=== PATIENT | female | born 1930 | race Caucasian/White ===

== ENCOUNTER 2017-02-24 22:49 | Inpatient (IN) | payer MEDICARE, OTHER ==
[~2017-02-24] VITALS: Ht 157.5 cm; Wt 63.0 kg
[~2017-02-24 22:49] MED LIST: ASPI81TA31 PO; Acetaminophen PO; CHOL10002 PO; DOCU-25 PO; FURO40TA5 PO; HYDR-894 PO; LEVO25TA9 PO; Lisinopril PO; RIVA15TA PO
--- NOTE | 2017-02-24 23:10 | NUR ---
CALLED MED RESPONSE SPOKE TO NISHANT. [facility] ETA 30MINS
--- NOTE | 2017-02-24 23:45 | NUR ---
[facility] HERE TO TRANSPORT PT TO [facility] FOR CT OF HEAD, DUE TO CT MACHINE DOWN... PT IS ALERT, ORIENTED X 4, NO RESP DISTRESS NOTED OR REPORTED UPON TRANSFER ASSESSMENT...
[2017-02-24 23:46] LABS: BASOPHILS # (AUTO) 0.1 K/uL (0.0-8.0); BASOPHILS % (AUTO) 0.7 % (0.0-2.0); EOSINOPHILS # (AUTO) 0.2 K/uL (0.0-0.7); EOSINOPHILS % (AUTO) 2.2 % (0.0-7.0); HEMATOCRIT 44.7 % (37-47); HEMOGLOBIN 14.6 G/DL (12.0-16.0); LYMPHOCYTES # (AUTO) 1.6 K/UL (0.8-4.8); LYMPHOCYTES % (AUTO) 19.9 % (20.5-51.5); MEAN CORPUSCULAR HEMOGLOBIN 26.7 UUG (27.0-31.0); MEAN CORPUSCULAR HGB CONC 33 g/dL (32.0-37.0); MEAN CORPUSCULAR VOLUME 81.8 FL (81.0-99.0); MONOCYTES % (AUTO) 12.6 % (0.0-11.0); NEUTROPHILS # (AUTO) 5.2 K/UL (1.8-8.9); NEUTROPHILS % (AUTO) 64.6 % (38.5-71.5); PLATELET COUNT (AUTO) 224 K/UL (150-450); RED BLOOD CELL COUNT(AUTO) 5.47 MIL/UL (4.2-5.4); WHITE BLOOD COUNT (AUTO) 8.1 K/UL (4.0-11.2)
[2017-02-24 23:47] LABS: CREATININE 0.8 mg/dL (0.6-1.3); POTASSIUM 4.1 mmol/L (3.5-5.1)
[2017-02-24] MEDS ORDERED: METF500T4 PO (23:57)
[2017-02-24] MEDS ORDERED: OLME20TA15 PO (23:57)
[2017-02-24] MEDS ORDERED: HYDR-4077 PO (23:57)
[2017-02-24 23:59] LABS: BILIRUBIN,DIRECT 0.2 mg/dL (0.0-0.2); BILIRUBIN,TOTAL 0.7 mg/dL (0.2-1.0); TOTAL PROTEIN, SERUM 8.6 g/dL (6.4-8.2)
--- NOTE | 2017-02-25 00:25 | NUR ---
PT RETURNED FROM CT SCAN AT [facility], PT IS ALERT, ORIENTED X 4, NO RESP DISTRESS NOTED OR REPORTED UPON ASSESSMENT... FAMILY AT SIDE...
[2017-02-25] MEDS ORDERED: FUROSEMIDE 20 MG/2 ML VIAL IV ONE ×2 (00:45→01:15)
--- NOTE | 2017-02-25 00:50 | NUR ---
Call placed to [employer], Kari Mackenzie will be paged.
--- NOTE | 2017-02-25 00:51 | NUR ---
ROSA speaking with Kari Mackenzie NP.
--- NOTE | 2017-02-25 01:04 | NUR ---
Pt. admitted to TELE , under care of Dr. DAVID, [place]ongs List completed, PT is alert, oriented x 4, no resp distress noted or reported upon assessment... pt transferred via gurney...
--- NOTE | 2017-02-25 01:10 | NUR ---
PATIENT ADMITTED TO FLOOR VIA GURNEY WITH FAMILY AT BEDSIDE. PATIENT IS A/O X4. FIJIAN SPEAKING BUT ABLE TO MAKE SIMPLE NEEDS KNOWN. DENIES CHEST PAIN OR ANY OTHER DISCOMFORT. PLACED ON TELE ORDERED A-FIB. BP ELEVATED. PATIENT IS CRYING TO FAMILY. FAMILY STATED THEY HAVE A FAMILY SITUATION THAT IS GOING ON AND THAT IS WHY SHE IS UPSET AND STRESSED OUT. WILL CONTINUE TO MONITOR VITALS. ALL OTHER VSS. NO RESP. DISTRESS NOTED. HEPLOCK INTACT AND PATENT. SKIN INTACT. ORIENTED TO ROOM AND CALL LIGHT. CALL LIGHT IN REACH. ALL NEEDS ATTENDED. WILL CONTINUE TO MONITOR.
[2017-02-25 01:15] VITALS: BP 164/69
[2017-02-25] MEDS ORDERED: ACETAMINOPHEN 325 MG TABLET PO PRN (01:15)
[2017-02-25] MEDS ORDERED: Z GUARD REMEDY PASTE 57 GM TUBE TOP PRN (01:15)
[2017-02-25] MEDS ORDERED: ZOLPIDEM 5 MG TABLET PO PRN (01:15)
[2017-02-25] MEDS ORDERED: INSULIN REGULAR, HUMAN 300 UNIT/3 ML VIAL SQ PRN (01:15)
[2017-02-25] MEDS ORDERED: MAGNESIUM HYDROXIDE 30 ML LIQUID UDC PO PRN (01:15)
[2017-02-25] MEDS ORDERED: DEXTROSE 50% 50 ML DISP.SYRIN IV PRN (01:15)
[2017-02-25] MEDS ORDERED: HYDROCODONE/APAP 5-325MG TABLET PO PRN (01:15)
[2017-02-25] MEDS ORDERED: ONDANSETRON 4 MG/2 ML VIAL IV PRN (01:15)
[2017-02-25] MEDS ORDERED: ENALAPRILAT DIHYDRATE INJ 2.5 MG in IV NORMAL SALINE 50 ML IV PRN (01:15)
--- NOTE | 2017-02-25 01:21 | NUR ---
PATIENT RESTING IN BED. INFORMED BY REGULATORY AFFAIRS CONSULTANT THAT PATIENT IS A-FIB WITH OCCASIONAL PVC'S. PATIENT HAD 6 BEATS OF NON-SUSTAINED V-TACH. VITALS STABLE AT THIS TIME. PATIENT DENIES CHEST PAIN. CALL LIGHT IN REACH. ALL NEEDS ATTENDED. WILL CONTINUE TO MONITOR.
[2017-02-25 04:00] VITALS: BP 127/62
--- NOTE | 2017-02-25 05:00 | NUR ---
PATIENT ASLEEP IN BED. EASILY AROUSABLE. DENIES CHEST TATE OR ANY PAIN OR DISCOMFORT. VSS. BP STABLE AND WNL. ON TELE A-FIB. CALL LIGHT IN REACH. ALL NEEDS ATTENDED. WILL CONTINUE TO MONITOR.
[2017-02-25] MEDS: BLOOD SUGAR DIAGNOSTIC 1 EACH STRIP VI SCH ×4 (06:13→20:41)
--- NOTE | 2017-02-25 08:00 | NUR ---
Awake, alert, oriented x a, macedonian speaking. On moderate high back rest. Denies chest pain. Eating breakfast
[2017-02-25] MEDS: PANTOPRAZOLE SODIUM 40 MG TABLET.DR PO SCH (08:46)
[2017-02-25] MEDS: ASPIRIN 81 MG TAB.CHEW PO SCH (08:47)
[2017-02-25] MEDS: hydrALAZINE HCL 50 MG TABLET PO SCH ×2 (08:48→20:33)
[2017-02-25] MEDS ORDERED: Medication Not On Formulary EA (Olmesartan Medoxomil (Benicar) 20 MG) PO SCH (09:00)
[2017-02-25] MEDS ORDERED: METFORMIN HCL 500 MG TABLET PO SCH (09:00)
--- NOTE | 2017-02-25 10:00 | NUR ---
ASSISTED PATIENT TO THE BATHROOM AND SITTING IN THE CHAIR. CALL LIGHT WITHIN REACH. TOLERATED WITH NO SIGNS OF DISTRESS.
[2017-02-25 11:35] VITALS: BP 129/67
[2017-02-25] MEDS: METFORMIN HCL 500 MG TABLET PO SCH (14:13)
[2017-02-25] MEDS: LOSARTAN POTASSIUM 50 MG TABLET PO SCH (14:22)
[2017-02-25 15:28] VITALS: BP 125/66
[2017-02-25] MEDS: RIVAROXABAN 15 MG TABLET PO SCH (17:47)
--- NOTE | 2017-02-25 18:23 | NUR ---
SITTING ON THE CHAIR MOST OF THE AFTERNOON. ASSISTED PATIENT BACK TO BED. COMFORTABLE AND NOT IN DISTRESS.
[2017-02-25 19:00] VITALS: BP 146/69
--- NOTE | 2017-02-25 20:00 | NUR ---
AWAKE,ALERT,AMBULATORY SPEAKS WOLOF,NO COMPLAINTS, MADE COMFORTABLY.IN NO ACUTE DISTRESS.
[2017-02-26 04:00] VITALS: BP 140/65
[2017-02-26] MEDS: PANTOPRAZOLE SODIUM 40 MG TABLET.DR PO SCH (06:25)
[2017-02-26 06:33] LABS: BASOPHILS # (AUTO) 0.1 K/uL (0.0-8.0); EOSINOPHILS # (AUTO) 0.3 K/uL (0.0-0.7); EOSINOPHILS % (AUTO) 3.5 % (0.0-7.0); HEMATOCRIT 43.8 % (37-47); HEMOGLOBIN 14.4 G/DL (12.0-16.0); LYMPHOCYTES # (AUTO) 1.6 K/UL (0.8-4.8); LYMPHOCYTES % (AUTO) 20.9 % (20.5-51.5); MEAN CORPUSCULAR HEMOGLOBIN 27.1 UUG (27.0-31.0); MEAN CORPUSCULAR HGB CONC 33 g/dL (32.0-37.0); MEAN CORPUSCULAR VOLUME 82.2 FL (81.0-99.0); MONOCYTES # (AUTO) 0.7 K/UL (0.1-1.30); MONOCYTES % (AUTO) 9.5 % (0.0-11.0); NEUTROPHILS % (AUTO) 65.1 % (38.5-71.5); PLATELET COUNT (AUTO) 250 K/UL (150-450); RED BLOOD CELL COUNT(AUTO) 5.33 MIL/UL (4.2-5.4); WHITE BLOOD COUNT (AUTO) 7.7 K/UL (4.0-11.2)
[2017-02-26] MEDS: BLOOD SUGAR DIAGNOSTIC 1 EACH STRIP VI SCH ×4 (06:39→20:44)
[2017-02-26 06:47] LABS: CARBON DIOXIDE 28 mmol/L (21-32); CHLORIDE 103 mmol/L (98-107); CHOLESTEROL 131 mg/dL (<200); CREATININE 0.9 mg/dL (0.6-1.3); GLUCOSE 102 mg/dL (74-106); HDL CHOLESTEROL 55 mg/dL (40-60); MAGNESIUM 1.9 mg/dL (1.8-2.4); PHOSPHOROUS 4.1 mg/dL (2.5-4.9); POTASSIUM 3.9 mmol/L (3.5-5.1); TRIGLYCERIDES 82 MG/DL (30-150); UREA NITROGEN, BLOOD 17 mg/dL (7-18)
--- NOTE | 2017-02-26 08:00 | NUR ---
AWAKE ALERT COOPERATE WELL NO SOB OR CHEST PAIN OOB UP AMB TO [facility] AND SITTING IN CHAIR EAT BREAKFAST WITH GOOD APPETITE RESTING QUIET AND CALL [place] IN REACH
[2017-02-26] MEDS: ASPIRIN 81 MG TAB.CHEW PO SCH (08:17)
[2017-02-26] MEDS: FUROSEMIDE 20 MG TABLET PO SCH (08:17)
[2017-02-26] MEDS: METFORMIN HCL 500 MG TABLET PO SCH (08:17)
[2017-02-26] MEDS: LOSARTAN POTASSIUM 50 MG TABLET PO SCH (08:18)
[2017-02-26] MEDS: hydrALAZINE HCL 50 MG TABLET PO SCH ×2 (08:18→20:33)
[2017-02-26] MEDS ORDERED: LOSARTAN POTASSIUM 25 MG TABLET PO SCH (09:00)
--- NOTE | 2017-02-26 11:00 | NUR ---
STROKE EDUCATION TEACHING AND PK GIVEN TO PATIENT ,VERBALIZES UNDERSTAND AND START TO MONITORING OF NIHSS SCALE Q SHIFT PER PROTOCOL ,ORDER PT/OT AND ST EVAL ,PATIENT WAS COOPERATE AND DOING WELL STABLE AND WNL
[2017-02-26 11:45] VITALS: BP 117/55
[2017-02-26 15:35] VITALS: BP 119/53
[2017-02-26] MEDS: RIVAROXABAN 15 MG TABLET PO SCH (17:12)
--- NOTE | 2017-02-26 17:20 | NUR ---
HEMODYNAMIC STATUS STABLE AND NEURO SIGNS WNL ON FALL /ASPIRATION PRECAUTION SAFETY MEASURE PROVIDED CALL LIGHT WITHIN REACH
[2017-02-26 19:00] VITALS: BP 158/77
--- NOTE | 2017-02-26 19:00 | NUR ---
AWAKE,ALERT SPEAKS CAMEROONIAN,AMBULATORY,NO COMPLAINTS.IN NO ACUTE DISTRESS.
[2017-02-27] MEDS: PANTOPRAZOLE SODIUM 40 MG TABLET.DR PO SCH (06:16)
[2017-02-27] MEDS: BLOOD SUGAR DIAGNOSTIC 1 EACH STRIP VI SCH ×2 (06:26→11:39)
--- NOTE | 2017-02-27 06:31 | NUR ---
SLEPT MOST OF THE NITE.NO COMPLAINTS.RESTING COMFORTABLY.
[2017-02-27 07:00] VITALS: BP 132/75
--- NOTE | 2017-02-27 08:00 | NUR ---
awake alert and oriented, sitting up in chair, denies of pain, no dizziness, stroke assessment done, education on stroke done, verbalized understanding, explained plan of care- verbalized understanding as well, safety measures maintained, call light within reach
[2017-02-27] MEDS: METFORMIN HCL 500 MG TABLET PO SCH (08:16)
[2017-02-27] MEDS: ASPIRIN 81 MG TAB.CHEW PO SCH (08:17)
[2017-02-27] MEDS: LOSARTAN POTASSIUM 50 MG TABLET PO SCH (08:17)
[2017-02-27] MEDS: FUROSEMIDE 20 MG TABLET PO SCH (08:17)
[2017-02-27] MEDS: hydrALAZINE HCL 50 MG TABLET PO SCH (08:17)
[2017-02-27] MEDS ORDERED: FURO20TA4 PO (10:13)
[2017-02-27] MEDS ORDERED: APIX5TAB PO (10:13)
--- NOTE | 2017-02-27 10:20 | NUR ---
seen by DIANA Delaney with order for d/c- pt informed and in agreement, states family will be here at noon time
[2017-02-27 11:21] VITALS: BP 116/62
--- NOTE | 2017-02-27 13:00 | NUR ---
saline lock removed, no swelling/redness on site, daughter here- med instructions given by pharmacist to daughter and so with discharge instructions by RN- verbalized understanding, escorted to car per w/c in stable condition under daughter's care. All belongings with her
== END 2017-02-27 13:00 | disposition home or self-care (01) | DRG 303 ==
LOC: ER 22:49 → TELE 02-25 00:50 → MED 02-25 15:30
PROVIDERS: ADMIT Nurse Practitioner Acute Care; ATTEND Nurse Practitioner Acute Care
DX: I25.10 Atherosclerotic heart disease of native coronary artery without angina pectoris (principal); K86.1 Other chronic pancreatitis; I50.32 Chronic diastolic (congestive) heart failure; E11.9 Type 2 diabetes mellitus without complications; E78.5 Hyperlipidemia, unspecified; F41.9 Anxiety disorder, unspecified; I27.2 Other secondary pulmonary hypertension; J84.10 Pulmonary fibrosis, unspecified; Z87.01 Personal history of pneumonia (recurrent); F41.0 Panic disorder [episodic paroxysmal anxiety]; Z95.5 Presence of coronary angioplasty implant and graft; Z82.49 Family history of ischemic heart disease and other diseases of the circulatory system; Z79.01 Long term (current) use of anticoagulants; Z88.5 Allergy status to narcotic agent; Z88.8 Allergy status to other drugs, medicaments and biological substances; Z79.82 Long term (current) use of aspirin; Z86.73 Personal history of transient ischemic attack (TIA), and cerebral infarction without residual deficits; I08.1 Rheumatic disorders of both mitral and tricuspid valves; I48.91 Unspecified atrial fibrillation
CPT/HCPCS: 36415; 70030-TC; 70450; 71010; 83735; 84100; 85025; 85730; 93005; 93307; 93880; 97165; A4663; J1815; J1940

== ENCOUNTER 2017-08-05 22:09 | Emergency (ER) | payer MEDICARE, OTHER ==
[~2017-08-05] VITALS: Ht 165.1 cm; Wt 63.5 kg
[~2017-08-05 22:09] MED LIST changes: +APIX5TAB PO; -Acetaminophen PO; -CHOL10002 PO; -DOCU-25 PO; +FURO20TA4 PO; -FURO40TA5 PO; +HYDR-4077 PO; -HYDR-894 PO; -LEVO25TA9 PO; -Lisinopril PO; +METF500T4 PO; +OLME20TA21 PO; -RIVA15TA PO
[2017-08-05] MEDS ORDERED: PHENYLEPHRINE 1% (EXTRA STR) NASAL SPRAY NS ONE ×2 (22:30→22:51)
[2017-08-05] MEDS ORDERED: SILVER NITRATE APPLICATOR STICK EACH TP ONE ×2 (22:30→22:51)
[2017-08-05] MEDS ORDERED: LET TOPICAL SOLUTION 8 ML UDC TP ONE (22:30)
--- NOTE | 2017-08-05 22:30 | NUR ---
PATIENT WALKED INTO ER C/O NOSE BLEED X2 HRS PRIOR TO ARRIVAL
[2017-08-05] MEDS ORDERED: CLONIDINE HCL 0.1 MG TABLET PO ONE (22:45)
[2017-08-05] MEDS ORDERED: CLONIDINE HCL 0.1 MG TABLET ONE (22:50)
[2017-08-05] MEDS ORDERED: LET TOPICAL SOLUTION 8 ML UDC ONE (22:51)
[2017-08-05 23:33] LABS: BASOPHILS # (AUTO) 0.1 K/uL (0.0-8.0); BASOPHILS % (AUTO) 0.7 % (0.0-2.0); EOSINOPHILS # (AUTO) 0.3 K/uL (0.0-0.7); EOSINOPHILS % (AUTO) 2.8 % (0.0-7.0); HEMATOCRIT 38.3 % (37-47); HEMOGLOBIN 12.5 G/DL (12.0-16.0); LYMPHOCYTES # (AUTO) 1.5 K/UL (0.8-4.8); LYMPHOCYTES % (AUTO) 16.6 % (20.5-51.5); MEAN CORPUSCULAR HGB CONC 33 g/dL (32.0-37.0); MEAN CORPUSCULAR VOLUME 82.5 FL (81.0-99.0); MONOCYTES # (AUTO) 0.7 K/UL (0.1-1.30); MONOCYTES % (AUTO) 7.2 % (0.0-11.0); NEUTROPHILS # (AUTO) 6.5 K/UL (1.8-8.9); NEUTROPHILS % (AUTO) 72.7 % (38.5-71.5); PLATELET COUNT (AUTO) 319 K/UL (150-450); RED BLOOD CELL COUNT(AUTO) 4.64 MIL/UL (4.2-5.4); WHITE BLOOD COUNT (AUTO) 9.1 K/UL (4.0-11.2)
[2017-08-05 23:34] LABS: CARBON DIOXIDE 27 mmol/L (21-32); CHLORIDE 104 mmol/L (98-107); CREATININE 0.8 mg/dL (0.6-1.3); GLUCOSE 127 mg/dL (74-106); UREA NITROGEN, BLOOD 8 mg/dL (7-18)
[2017-08-05 23:46] LABS: ALANINE AMINOTRANSFERASE 21 U/L (14-59); ALKALINE PHOSPHATASE 99 U/L (50-136); ASPARTATE AMINOTRANSFERASE 15 U/L (15-37); BILIRUBIN,TOTAL 0.3 mg/dL (0.2-1.0); TOTAL PROTEIN, SERUM 7.9 g/dL (6.4-8.2)
[2017-08-06] MEDS ORDERED: ACETAMINOPHEN ES 500 MG TABLET PO ONE
--- NOTE | 2017-08-06 00:05 | NUR ---
PATIENT C/O IBARRA. REQUESTING TYLENOL. DR WILLARD AWARE
[2017-08-06] MEDS ORDERED: ACETAMINOPHEN ES 500 MG TABLET ONE (00:16)
[2017-08-06 00:39] LABS: *BILIRUBIN,URIN NEGATIVE (NEGATIVE); *BLOOD, URINE NEGATIVE (NEGATIVE); *CLARITY,URINE CLEAR (CLEAR); *COLOR,URINE YELLOW (YELLOW); *KETONES,URINE NEGATIVE (NEGATIVE); *PROTEIN,URINE NEGATIVE (NEGATIVE); *UROBILINOGEN,URINE 0.2 E.U./dl (NORMAL); LEUKOCYTE ESTERASE ,URINE NEGATIVE (NEGATIVE); NITRITE, URINE NEGATIVE (NEGATIVE); PH,URINE 5.5 (5.0-8.0); UGLUCOSE NEGATIVE (NEGATIVE)
[2017-08-06 00:43] LABS: BACTERIA,URINE NONE SEEN /HPF (NONE SEEN); RBC,URINE NONE SEEN /HPF (0-3); SQUAMOUS EPITHELIAL CELL,UR FEW /HPF (NONE SEEN); WBC,URINE 0-3 /HPF (0-3)
--- NOTE | 2017-08-06 00:45 | NUR ---
PATIENT STATES IBARRA PAIN 3/10. NO DISTRESS NOTED
[2017-08-06 01:26] VITALS: BP 125/75
--- NOTE | 2017-08-06 01:27 | NUR ---
Patient discharged to home in stable conditon WITH DAUGHTER TAKING PATIENT HOME. Written and verbal after care instructions given. Patient verbalizes understanding of instructions.
== END 2017-08-06 01:32 | disposition home or self-care (01) ==
LOC: ER 22:10
DX: R04.0 Epistaxis (principal); I10 Essential (primary) hypertension; Z79.01 Long term (current) use of anticoagulants; Z79.82 Long term (current) use of aspirin; Z88.6 Allergy status to analgesic agent; I48.91 Unspecified atrial fibrillation; Z90.49 Acquired absence of other specified parts of digestive tract
CPT/HCPCS: 36415; 85025; 85610; 93005; A4663

== ENCOUNTER 2017-11-05 17:00 | Inpatient (IN) | payer MEDICARE, OTHER ==
[~2017-11-05] VITALS: Ht 154.9 cm; Wt 63.0 kg
[~2017-11-05 17:00] MED LIST changes: -ASPI81TA31 PO
[2017-11-05] MEDS ORDERED: ASPI81TA31 PO (17:27)
--- NOTE | 2017-11-05 17:50 | NUR ---
PATIENT WAS SEEN BY DR THEODORE. SHE IS A/A/O X3. FLU SWAB SENT. EKG DONE. LABS SENT. IV PLACED BY SOLUTIONS DEVELOPMENT ANALYST.
[2017-11-05 18:01] LABS: BASOPHILS # (AUTO) 0.1 K/uL (0.0-8.0); BASOPHILS % (AUTO) 1.4 % (0.0-2.0); EOSINOPHILS # (AUTO) 0.1 K/uL (0.0-0.7); EOSINOPHILS % (AUTO) 1.9 % (0.0-7.0); HEMATOCRIT 37.3 % (31.2-41.9); HEMOGLOBIN 12.1 g/dL (10.9-14.3); LYMPHOCYTES # (AUTO) 1.5 K/uL (20.0-40.0); LYMPHOCYTES % (AUTO) 19.9 % (20.5-51.5); MEAN CORPUSCULAR HGB CONC 32 g/dL (32.3-35.6); MEAN CORPUSCULAR VOLUME 74.4 fL (75.5-95.3); MONOCYTES # (AUTO) 0.8 K/uL (2.0-10.0); MONOCYTES % (AUTO) 11.2 % (0.0-11.0); NEUTROPHILS # (AUTO) 4.9 K/uL (1.8-8.9); NEUTROPHILS % (AUTO) 65.6 % (38.5-71.5); PLATELET COUNT (AUTO) 251 K/uL (179-408); RED BLOOD CELL COUNT(AUTO) 5.02 MIL/uL (3.63-4.92); WHITE BLOOD COUNT (AUTO) 7.5 K/uL (3.8-11.8)
[2017-11-05 18:09] LABS: CARBON DIOXIDE 29 mmol/L (21-32); CHLORIDE 102 mmol/L (98-107); CREATININE 0.9 mg/dL (0.6-1.3); GLUCOSE 97 mg/dL (74-106); POTASSIUM 4.4 mmol/L (3.5-5.1); UREA NITROGEN, BLOOD 14 mg/dL (7-18)
[2017-11-05 18:14] LABS: ALANINE AMINOTRANSFERASE 18 U/L (14-59); ALKALINE PHOSPHATASE 105 U/L (50-136); ASPARTATE AMINOTRANSFERASE 18 U/L (15-37); BILIRUBIN,TOTAL 0.5 mg/dL (0.2-1.0); CREATINE KINASE, TOTAL 52 U/L (26-192); TOTAL PROTEIN, SERUM 8.2 g/dL (6.4-8.2)
--- NOTE | 2017-11-05 19:51 | NUR ---
Patient and family aware of pending admission to tele floor. Report given to Marilyn ALLRED. Awaiting for hospitalist to call back. Pt is awake and alert. She drank som3e juice and ate half a sandwich. She is coughing frequently.
--- NOTE | 2017-11-05 20:02 | NUR ---
3rd call placed to [facility], Dr. Yip has been paged.
[2017-11-05] MEDS ORDERED: Z GUARD REMEDY PASTE 57 GM TUBE TOP PRN (20:15)
[2017-11-05] MEDS ORDERED: ACETAMINOPHEN 325 MG TABLET PO PRN (20:15)
[2017-11-05] MEDS ORDERED: MAGNESIUM HYDROXIDE 30 ML LIQUID UDC PO PRN (20:15)
[2017-11-05] MEDS ORDERED: HYDROCODONE/APAP 5-325MG TABLET PO PRN (20:15)
[2017-11-05] MEDS ORDERED: ONDANSETRON 4 MG/2 ML VIAL IV PRN (20:15)
--- NOTE | 2017-11-05 20:30 | NUR ---
RECEIVED PATIENT VIA GURNEY FROM ER. PATIENT IS A/O X4, SPANSISH SPEAKING BUT ABLE TO MAKE NEEDS KNOW. REQUIRES CONFERENCE TRANSLATOR FOR DETAILED INFORMATION. BP ELEVATED ON ADMISSION. ALL OTHER VS WNL. PATIENT IS HAVING NON-PRODUCTIVE DRY COUGH. DENIES PAIN, JUST C/O GENERALIZED DISCOMFORT/WEAKNESS. H/L INTACT AND PATENT. PLACED ON TELE ORDERED, A-FIB WITH PVC'S. NO RESP. DISTRESS NOTED. ON RA SATING 98%. ORIENTED PATIENT TO ROOM AND CALL LIGHT. BED ALARM ON. CALL LIGHT IN REACH. ALL NEEDS ATTENDED. WILL CONTINUE TO MONITOR .
[2017-11-05 20:42] VITALS: BP 177/66
[2017-11-05] MEDS: FUROSEMIDE 40 MG/4 ML VIAL IVP SCH (20:50)
[2017-11-05] MEDS ORDERED: ENOXAPARIN SODIUM 40 MG/0.4 ML DISP.SYRIN SQ SCH (21:00)
--- NOTE | 2017-11-05 21:00 | NUR ---
PATIENT GIVEN LASIX 40MG IV PER RN. WILL CONTINUE TO MONITOR.
[2017-11-06] VITALS: BP 154/61
--- NOTE | 2017-11-06 00:30 | NUR ---
VSS. ON TELE A-FIB WITH PVC'S. URINATING IN DIAPER, UNABLE TO RECORD "cc" AMOUNT. PATIENT CHANGED 4X. ALL NEEDS ATTENDED.
[2017-11-06 04:00] VITALS: BP 146/70
--- NOTE | 2017-11-06 06:46 | NUR ---
TEXTED DR. SLOAN FOR MRI APPROVAL.
--- NOTE | 2017-11-06 06:54 | NUR ---
PATIENT AWAKE IN BED. SLEPT WELL. NO C/O PAIN OR DISCOMFORT. NO RESP. DISTRESS NOTED. VS WNL. ON TELE A-FIB WITH PVC'S. CALL LIGHT IN REACH. ALL NEEDS ATTENDED. WILL CONTINUE TO MONITOR.
[2017-11-06 06:56] LABS: BASOPHILS % (AUTO) 0.4 % (0.0-2.0); EOSINOPHILS # (AUTO) 0.2 K/uL (0.0-0.7); EOSINOPHILS % (AUTO) 2.7 % (0.0-7.0); HEMATOCRIT 36.7 % (31.2-41.9); LYMPHOCYTES # (AUTO) 1.7 K/uL (20.0-40.0); LYMPHOCYTES % (AUTO) 25.9 % (20.5-51.5); MEAN CORPUSCULAR HEMOGLOBIN 23.9 uug (24.7-32.8); MEAN CORPUSCULAR HGB CONC 33 g/dL (32.3-35.6); MEAN CORPUSCULAR VOLUME 73.5 fL (75.5-95.3); MONOCYTES # (AUTO) 0.7 K/uL (2.0-10.0); MONOCYTES % (AUTO) 11.3 % (0.0-11.0); NEUTROPHILS # (AUTO) 3.9 K/uL (1.8-8.9); NEUTROPHILS % (AUTO) 59.7 % (38.5-71.5); PLATELET COUNT (AUTO) 248 K/uL (179-408); WHITE BLOOD COUNT (AUTO) 6.5 K/uL (3.8-11.8)
--- NOTE | 2017-11-06 08:10 | NUR ---
PT REFUSED LASIX. PT STATES, " I DON'T WANT TO GO TO THE BATHROOM ON THE WAY TO [place]". THE RISKS OF NOT TAKING MEDICATION PRESCRIBED WAS EXPLAINED. PT UNDERSTANDS RISKS. PT STATES, " I WILL TAKE THE NEXT DOSE OF LASIX TONIGHT". CONTINUE TO MONITOR PT.
[2017-11-06] MEDS: FUROSEMIDE 40 MG/4 ML VIAL IVP SCH (08:15)
[2017-11-06 08:26] LABS: CARBON DIOXIDE 27 mmol/L (21-32); CHLORIDE 101 mmol/L (98-107); CHOLESTEROL 111 mg/dL (<200); CREATININE 0.9 mg/dL (0.6-1.3); GLUCOSE 107 mg/dL (74-106); HDL CHOLESTEROL 50 mg/dL (40-60); MAGNESIUM 1.8 mg/dL (1.8-2.4); PHOSPHOROUS 4.8 mg/dL (2.5-4.9); POTASSIUM 3.5 mmol/L (3.5-5.1); TRIGLYCERIDES 83 MG/DL (30-150); UREA NITROGEN, BLOOD 18 mg/dL (7-18)
[2017-11-06 08:40] LABS: THYROID STIMULATING HORMONE 5.227 mIU/mL (0.358-3.740)
[2017-11-06] MEDS: GUAIFENESIN/CODEINE 5 ML LIQUID UDC PO PRN ×2 (11:05→17:05)
--- NOTE | 2017-11-06 11:08 | NUR ---
PT LEFT THE UNIT TO HAVE AN MRI AT [facility]. PT PACKET COMPLETED, PT CALM COOPERATIVE. ROBITUSSIN W/ CODEINE GIVEN PER FELT HOOKER. PT STABLE FOR TRANSPORTATION.
[2017-11-06] MEDS ORDERED: ALBUTEROL SULFATE 1.25 MG/3 ML NEBU NEB PRN (11:15)
[2017-11-06] MEDS ORDERED: IPRATROPIUM BROMIDE 0.5 MG/2.5 ML NEBU NEB PRN (11:15)
[2017-11-06] MEDS ORDERED: DEXTROSE 50% 50 ML DISP.SYRIN IV PRN (11:15)
[2017-11-06] MEDS: BLOOD SUGAR DIAGNOSTIC 1 EACH STRIP VI SCH ×3 (11:30→20:55)
--- NOTE | 2017-11-06 11:32 | NUR ---
PT IS OFF THE UNIT ON HER WAY TO [place] FOR AN MRI. UNABLE TO OBTAIN BLOOD SUGAR AT THIS TIME.
--- NOTE | 2017-11-06 11:50 | NUR ---
PT GONE TO [facility]. WILL CHECK BACK FOR CAROTID ULTRASOUND IN AFTERNOON
[2017-11-06 11:53] LABS: BASOPHILS % (MANUAL) 1 % (0-2); EOSINOPHILS % (MANUAL) 1 % (0-8); LYMPHOCYTES % (MANUAL) 29 % (20-40); MONOCYTES % (MANUAL) 12 % (2-10); NEUTROPHILS % (MANUAL) 56 % (42-75)
[2017-11-06 11:56] LABS: REACTIVE LYMPHOCYTES 1 % (0-0)
[2017-11-06] MEDS: methylPREDNISolone SOD SUCC 40 MG/ML VIAL IV SCH ×2 (12:00→20:51)
--- NOTE | 2017-11-06 12:39 | NUR ---
BRANNON ANDERSON HELD PT AT [facility] FOR MRI. HAS NOT ARRIVED.
--- NOTE | 2017-11-06 13:03 | NUR ---
PT STILL NOT BACK FROM [facility]
[2017-11-06 13:15] VITALS: BP 141/57
[2017-11-06 15:53] VITALS: BP 137/53
[2017-11-06 16:41] LABS: BASOPHILS # (AUTO) 0.1 K/uL (0.0-8.0); BASOPHILS % (AUTO) 1.3 % (0.0-2.0); EOSINOPHILS # (AUTO) 0.2 K/uL (0.0-0.7); EOSINOPHILS % (AUTO) 2.9 % (0.0-7.0); HEMATOCRIT 37.7 % (31.2-41.9); HEMOGLOBIN 12.1 g/dL (10.9-14.3); LYMPHOCYTES # (AUTO) 1.8 K/uL (20.0-40.0); LYMPHOCYTES % (AUTO) 26.6 % (20.5-51.5); MEAN CORPUSCULAR HEMOGLOBIN 23.6 uug (24.7-32.8); MEAN CORPUSCULAR HGB CONC 32 g/dL (32.3-35.6); MEAN CORPUSCULAR VOLUME 73.7 fL (75.5-95.3); MONOCYTES # (AUTO) 0.7 K/uL (2.0-10.0); MONOCYTES % (AUTO) 10.9 % (0.0-11.0); NEUTROPHILS # (AUTO) 3.9 K/uL (1.8-8.9); NEUTROPHILS % (AUTO) 58.3 % (38.5-71.5); PLATELET COUNT (AUTO) 247 K/uL (179-408); RED BLOOD CELL COUNT(AUTO) 5.12 MIL/uL (3.63-4.92); WHITE BLOOD COUNT (AUTO) 6.6 K/uL (3.8-11.8)
[2017-11-06] MEDS: hydrALAZINE HCL 50 MG TABLET PO SCH (17:06)
[2017-11-06] MEDS: INSULIN REGULAR, HUMAN 300 UNIT/3 ML VIAL SQ PRN (17:07)
[2017-11-06] MEDS ORDERED: GADOVERSETAMIDE 2.5 MMOL/5 ML VIAL ONE (17:44)
--- NOTE | 2017-11-06 19:04 | NUR ---
PT OBSERVED RESTING NO SIGNS OF RESPIRATORY DISTRESS. CALM, COOPERATIVE. CONTINUE TO MONITOR.
[2017-11-06 20:00] VITALS: BP 145/52
--- NOTE | 2017-11-06 20:30 | NUR ---
PATIENT AWAKE, ALERT, NO ACUTE RESPIRATORY DISTRESS, NO COUGH,O2 SAT 95% ON ROOM AIR,BP 145/52, GOAL TO KEEP SBP 140-160 PER FRANKIE COMPLIANCE SPEC,PATIENT DENIES ANY DISCOMFORT, CONTROLLED A FIB WITH PVC'S ON MONITOR,STROKE EDUCATION PACKAGE PROVIDED.FAMILY VISITING AT BEDSIDE.
[2017-11-06] MEDS ORDERED: ATORVASTATIN 10 MG TABLET PO SCH (21:00)
[2017-11-07] VITALS: BP 130/52
[2017-11-07 04:00] VITALS: BP 152/78
[2017-11-07] MEDS: methylPREDNISolone SOD SUCC 40 MG/ML VIAL IV SCH ×2 (04:28→12:36)
[2017-11-07] MEDS: GUAIFENESIN/CODEINE 5 ML LIQUID UDC PO PRN (05:51)
[2017-11-07 06:33] LABS: BASOPHILS % (AUTO) 0.3 % (0.0-2.0); HEMATOCRIT 38.7 % (31.2-41.9); HEMOGLOBIN 12.6 g/dL (10.9-14.3); LYMPHOCYTES # (AUTO) 0.9 K/uL (20.0-40.0); LYMPHOCYTES % (AUTO) 14.4 % (20.5-51.5); MEAN CORPUSCULAR HGB CONC 33 g/dL (32.3-35.6); MEAN CORPUSCULAR VOLUME 73.7 fL (75.5-95.3); MONOCYTES # (AUTO) 0.1 K/uL (2.0-10.0); MONOCYTES % (AUTO) 1.4 % (0.0-11.0); NEUTROPHILS # (AUTO) 5.2 K/uL (1.8-8.9); NEUTROPHILS % (AUTO) 83.9 % (38.5-71.5); PLATELET COUNT (AUTO) 291 K/uL (179-408); RED BLOOD CELL COUNT(AUTO) 5.26 MIL/uL (3.63-4.92); WHITE BLOOD COUNT (AUTO) 6.1 K/uL (3.8-11.8)
[2017-11-07] MEDS: BLOOD SUGAR DIAGNOSTIC 1 EACH STRIP VI SCH ×3 (06:35→16:44)
[2017-11-07 06:53] LABS: CARBON DIOXIDE 24 mmol/L (21-32); CHLORIDE 101 mmol/L (98-107); CREATININE 0.9 mg/dL (0.6-1.3); GLUCOSE 184 mg/dL (74-106); UREA NITROGEN, BLOOD 20 mg/dL (7-18)
[2017-11-07] MEDS: hydrALAZINE HCL 50 MG TABLET PO SCH ×2 (08:41→16:41)
--- NOTE | 2017-11-07 08:48 | NUR ---
METFORMIN 500MG HOLD FOR 48 HRS. D/T MRI WITH CONTRAST DONE DATED 11/06
[2017-11-07] MEDS ORDERED: LOSARTAN POTASSIUM 50 MG TABLET PO SCH (09:00)
[2017-11-07] MEDS ORDERED: Medication Not On Formulary EA (Olmesartan Medoxomil (Benicar) 20 MG) PO SCH (09:00)
[2017-11-07] MEDS ORDERED: ASPIRIN 81 MG TAB.CHEW PO SCH (09:00)
[2017-11-07] MEDS ORDERED: CLOPIDOGREL 75 MG TABLET PO SCH (09:00)
[2017-11-07] MEDS ORDERED: FUROSEMIDE 20 MG TABLET PO SCH (09:00)
[2017-11-07] MEDS ORDERED: METFORMIN HCL 500 MG TABLET PO SCH ×2 (09:00)
[2017-11-07 09:50] LABS: BAND % (MANUAL) 5 % (0-10); BASOPHILS % (MANUAL) 1 % (0-2); LYMPHOCYTES % (MANUAL) 16 % (20-40); MONOCYTES % (MANUAL) 2 % (2-10); NEUTROPHILS % (MANUAL) 76 % (42-75)
[2017-11-07] MEDS: INSULIN REGULAR, HUMAN 300 UNIT/3 ML VIAL SQ PRN ×2 (11:49→16:48)
[2017-11-07 11:56] VITALS: BP 113/50
[2017-11-07] MEDS ORDERED: ASPI81TA31 PO (13:18)
[2017-11-07] MEDS ORDERED: BENZ-13 PO (13:18)
[2017-11-07] MEDS ORDERED: APIX5TAB PO (13:18)
[2017-11-07 16:16] VITALS: BP 153/70
[2017-11-07 16:41] VITALS: BP 153/70
--- NOTE | 2017-11-07 20:10 | NUR ---
PT DISCHARGED TO ARU VIA WHEELCHAIR. DAUGHTER ALONG WITH TRANSFER. PT IN STABLE CONDITION. IV KEPT INTACT AND PATENT, KEPT IN PLACE FOR ARU USE AND HEP-LOCKED. BELONGINGS LIST SIGNED AND ALL BELONGINGS SENT WITH DAUGHTER. DISCHARGE INSTRUCTIONS SIGNED. COPIES MADE, KEPT IN CHART. ALL NEEDS ATTENDED. SAFETY MAINTAINED
== END 2017-11-07 20:10 | DRG 65 ==
LOC: ER 17:00 → TELE 20:10
PROVIDERS: ATTEND Nurse Practitioner Acute Care
DX: I63.9 Cerebral infarction, unspecified (principal); K86.1 Other chronic pancreatitis; I48.2 Chronic atrial fibrillation; I27.20 Pulmonary hypertension, unspecified; J84.10 Pulmonary fibrosis, unspecified; I11.0 Hypertensive heart disease with heart failure; I50.32 Chronic diastolic (congestive) heart failure; G93.9 Disorder of brain, unspecified; I50.30 Unspecified diastolic (congestive) heart failure; J98.11 Atelectasis; E11.9 Type 2 diabetes mellitus without complications; E78.5 Hyperlipidemia, unspecified; F41.0 Panic disorder [episodic paroxysmal anxiety]; Z90.49 Acquired absence of other specified parts of digestive tract; Z90.710 Acquired absence of both cervix and uterus; Z79.82 Long term (current) use of aspirin; Z98.61 Coronary angioplasty status; I25.10 Atherosclerotic heart disease of native coronary artery without angina pectoris; I34.0 Nonrheumatic mitral (valve) insufficiency; Z91.81 History of falling; I70.0 Atherosclerosis of aorta; Z82.49 Family history of ischemic heart disease and other diseases of the circulatory system
CPT/HCPCS: 36415; 70030-TC; 70450; 70553; 71045; 71270; 83735; 84100; 84443; 85025; 85610; 85651; 87400; 92523; 93005; 93307; 93880; 97116; 97530; A4663; A9579; J1650; J1815; J1940; J2920

== ENCOUNTER 2017-11-07 17:10 | Inpatient (IN) | payer MEDICARE, OTHER ==
[~2017-11-07] VITALS: Ht 154.9 cm; Wt 63.0 kg
[~2017-11-07 17:10] MED LIST changes: +ASPI81TA31 PO; +BENZ-13 PO
--- NOTE | 2017-11-07 20:10 | NUR ---
Pt arrived via wheelchair accompanied by daughter, alert and oriented x4. Hong Konger speaking. No acute distress noted. No complaints of pain or discomfort. Breathing even and unlabored with normal respirations. pertinent assessment done, skin is intact. MD made aware about med recon and states "continue all medications and med recon will be done tomorrow morning." Pt is stable. Safety and fall precautions observed and maintained. Call light placed within reach. All needs attended.
[2017-11-07 21:27] VITALS: BP 156/68
[2017-11-07] MEDS ORDERED: Z GUARD REMEDY PASTE 57 GM TUBE TOP PRN (21:30)
[2017-11-07] MEDS ORDERED: GUAIFENESIN/DEXTROMETHORPHAN 5 ML UDC PO PRN (21:30)
[2017-11-07] MEDS ORDERED: DEXTROSE 50% 50 ML DISP.SYRIN IV PRN (21:30)
--- NOTE | 2017-11-07 21:49 | NUR ---
Pt complained of having non productive cough, requested for cough medication, MD made aware, ordered Robitussin 5ml q6hr PRN. Order carried out. No other complaints noted. Call light within reach. All needs attended.
[2017-11-08] MEDS: BLOOD SUGAR DIAGNOSTIC 1 EACH STRIP VI SCH ×4 (06:20→20:44)
--- NOTE | 2017-11-08 06:27 | NUR ---
Patient slept comfortably throughout the night. No acute distress noted. No complaints of pain or discomfort. Breathing even and unlabored with normal respirations. Accu check done, 134mg/dl. No signs/symptoms of hypo/hyperglycemia noted.Frequently checked for safety. call light within reach. All needs attended.
--- NOTE | 2017-11-08 07:30 | NUR ---
Received patient awake, alert, verbally responsive, greek speaking, able to make needs known, not ini any form of acute distress. She denies any pain or discomfort. Call light placed within reach. Reminded to use call light for assistance with verbalized understanding.
[2017-11-08 07:36] LABS: CARBON DIOXIDE 25 mmol/L (21-32); CHLORIDE 99 mmol/L (98-107); CHOLESTEROL 120 mg/dL (<200); GLUCOSE 141 mg/dL (74-106); HDL CHOLESTEROL 57 mg/dL (40-60); MAGNESIUM 2.1 mg/dL (1.8-2.4); PHOSPHOROUS 4.9 mg/dL (2.5-4.9); POTASSIUM 4.1 mmol/L (3.5-5.1); TRIGLYCERIDES 60 MG/DL (30-150); UREA NITROGEN, BLOOD 28 mg/dL (7-18)
[2017-11-08 07:44] LABS: HEMOGLOBIN 12.2 g/dL (10.9-14.3); LYMPHOCYTES # (AUTO) 1.5 K/uL (20.0-40.0); MONOCYTES # (AUTO) 1.1 K/uL (2.0-10.0)
[2017-11-08 07:53] LABS: HEMATOCRIT 38.3 % (31.2-41.9); LYMPHOCYTES % (AUTO) 7.6 % (20.5-51.5); MEAN CORPUSCULAR HEMOGLOBIN 23.7 uug (24.7-32.8); MEAN CORPUSCULAR HGB CONC 32 g/dL (32.3-35.6); MEAN CORPUSCULAR VOLUME 74.2 fL (75.5-95.3); MONOCYTES % (AUTO) 5.8 % (0.0-11.0); NEUTROPHILS # (AUTO) 16.9 K/uL (1.8-8.9); NEUTROPHILS % (AUTO) 86.6 % (38.5-71.5); PLATELET COUNT (AUTO) 307 K/uL (179-408); RED BLOOD CELL COUNT(AUTO) 5.17 MIL/uL (3.63-4.92)
[2017-11-08 07:54] LABS: WHITE BLOOD COUNT (AUTO) 19.5 K/uL (3.8-11.8)
--- NOTE | 2017-11-08 08:15 | NUR ---
Reminded Dr. Mannie Yip that medication reconciliation still needs to be done and per MD he will do it.
[2017-11-08 08:51] VITALS: BP 153/76
--- NOTE | 2017-11-08 09:49 | NUR ---
Dr. Mannie Yip in the unit, informed him of WBC 19.5 and said he will look into it. Again reminded MD regarding med recon.
[2017-11-08 10:52] LABS: BAND % (MANUAL) 2 % (0-10); LYMPHOCYTES % (MANUAL) 13 % (20-40); MONOCYTES % (MANUAL) 6 % (2-10); NEUTROPHILS % (MANUAL) 79 % (42-75)
--- NOTE | 2017-11-08 11:48 | NUR ---
Followed up with Dr. Mannie Yip regarding medication reconciliation for admission and that she did not receive morning meds, said OK.
--- NOTE | 2017-11-08 13:02 | NUR ---
Notified Dr. Mannie Kelly regarding BP 160/78 and reminded him of medication reconciliation, MD he said that's ok and he will do it soon.
--- NOTE | 2017-11-08 17:22 | NUR ---
Patient seen and examined by Dr. Mannie Yip, reminded him of the needed med recon and WBC of 19.5. MD stated he will do med recon also ordered UA with C&S
[2017-11-08] MEDS: METFORMIN HCL 500 MG TABLET PO SCH (18:34)
[2017-11-08] MEDS: hydrALAZINE HCL 50 MG TABLET PO SCH (18:38)
[2017-11-08] MEDS: LOSARTAN POTASSIUM 50 MG TABLET PO SCH (18:39)
[2017-11-08 19:01] LABS: *BILIRUBIN,URIN NEGATIVE (NEGATIVE); *BLOOD, URINE NEGATIVE (NEGATIVE); *COLOR,URINE YELLOW (YELLOW); *KETONES,URINE NEGATIVE (NEGATIVE); *PROTEIN,URINE NEGATIVE (NEGATIVE); *UROBILINOGEN,URINE 0.2 E.U./dl (NORMAL); LEUKOCYTE ESTERASE ,URINE TRACE (NEGATIVE); NITRITE, URINE NEGATIVE (NEGATIVE); PH,URINE 5.5 (5.0-8.0); UGLUCOSE NEGATIVE (NEGATIVE)
[2017-11-08 19:21] LABS: *CLARITY,URINE SLIGHTLY HAZY (CLEAR); BACTERIA,URINE MODERATE /HPF (NONE SEEN); MUCUS,URINE FEW /LPF (0-FEW); RBC,URINE 0-3 /HPF (0-3); SQUAMOUS EPITHELIAL CELL,UR MODERATE /HPF (NONE SEEN)
--- NOTE | 2017-11-08 19:30 | NUR ---
Received patient awake, using her tablet , no s/s of distress. Verbalized having no pain at this time. Call light within reach. Encouraged to call whenever necessary. Will continue to monitor.
[2017-11-08 20:43] VITALS: BP 167/73
--- NOTE | 2017-11-08 22:45 | NUR ---
Dr. Mannie Yip made aware of UA results. Awaiting orders.
--- NOTE | 2017-11-08 23:20 | NUR ---
Dr. Yip replied re: pt's UA results--no new orders at this time.
[2017-11-09] MEDS: BLOOD SUGAR DIAGNOSTIC 1 EACH STRIP VI SCH ×4 (06:21→20:54)
--- NOTE | 2017-11-09 06:51 | NUR ---
Pt awake, sitting on bedside. Slept well. Stayed in a stable condition during the shift. Due meds given. Needs attended. Frequent checks done. Call light kept within reach. Endorsed accordingly.
[2017-11-09 07:15] LABS: CARBON DIOXIDE 26 mmol/L (21-32); CHLORIDE 102 mmol/L (98-107); CREATININE 0.9 mg/dL (0.6-1.3); GLUCOSE 95 mg/dL (74-106); POTASSIUM 4.2 mmol/L (3.5-5.1); UREA NITROGEN, BLOOD 26 mg/dL (7-18)
[2017-11-09 07:22] LABS: BASOPHILS # (AUTO) 0.1 K/uL (0.0-8.0); BASOPHILS % (AUTO) 0.9 % (0.0-2.0); EOSINOPHILS % (AUTO) 0.4 % (0.0-7.0); HEMATOCRIT 40.9 % (31.2-41.9); LYMPHOCYTES # (AUTO) 3.2 K/uL (20.0-40.0); MEAN CORPUSCULAR HEMOGLOBIN 23.7 uug (24.7-32.8); MEAN CORPUSCULAR HGB CONC 32 g/dL (32.3-35.6); MEAN CORPUSCULAR VOLUME 74.8 fL (75.5-95.3); MONOCYTES # (AUTO) 1.2 K/uL (2.0-10.0); MONOCYTES % (AUTO) 9.7 % (0.0-11.0); NEUTROPHILS # (AUTO) 7.4 K/uL (1.8-8.9); PLATELET COUNT (AUTO) 285 K/uL (179-408); RED BLOOD CELL COUNT(AUTO) 5.47 MIL/uL (3.63-4.92)
[2017-11-09 07:49] LABS: WHITE BLOOD COUNT (AUTO) 11.9 K/uL (3.8-11.8)
[2017-11-09] MEDS: ASPIRIN 81 MG TAB.CHEW PO SCH (08:49)
[2017-11-09] MEDS: hydrALAZINE HCL 50 MG TABLET PO SCH ×2 (08:49→17:03)
[2017-11-09] MEDS: BENZONATATE 100 MG CAPSULE PO SCH ×3 (08:50→17:00)
[2017-11-09] MEDS: LOSARTAN POTASSIUM 50 MG TABLET PO SCH (08:50)
[2017-11-09] MEDS: METFORMIN HCL 500 MG TABLET PO SCH (08:50)
[2017-11-09] MEDS: FUROSEMIDE 20 MG TABLET PO SCH (08:50)
[2017-11-09] MEDS ORDERED: APIXABAN 5 MG TABLET PO SCH (09:00)
[2017-11-09 09:36] LABS: BASOPHILS % (MANUAL) 1 % (0-2); EOSINOPHILS % (MANUAL) 1 % (0-8); LYMPHOCYTES % (MANUAL) 32 % (20-40); MONOCYTES % (MANUAL) 8 % (2-10); NEUTROPHILS % (MANUAL) 58 % (42-75)
[2017-11-09 10:02] VITALS: BP 134/59
--- NOTE | 2017-11-09 17:41 | NUR ---
Seen this pleasant 87y/o F upon AM rounds earlier in the day. She speaks portuguese with some arabic. Otherwise she is compliant with her plan of care. Pertinent assessments done to all body systems, she is not in any pain and not in any discomfort. No episode of hypo or hyperglycemia during the shift, skin is warm and dry to touch, afebrile, skin is also intact, patient is able to walk with her walker, safety precautions in place at all times, environment was non-slippery and dry. Patient reported that she had loose bowel for 3 times, but the consistency were soft, she however doesnt have any signs and symptoms of dehydration at this time. All needs attended promptly, Call light is placed in easy reach, will endorse to charge nurse.
--- NOTE | 2017-11-09 18:10 | NUR ---
Mannie ALLAN, made rounds, relayed UA results, will wait for final culture results at this time, per MD.
--- NOTE | 2017-11-09 19:30 | NUR ---
Pt resting comfortably in bed. AAO x4. Daughter at bedside. Tajik speaking, speak a little bit of Danish. Able to make needs known. No acute distress noted. No c/o pain or discomfort. Left forearm IV site patent and intact. Safety measures maintained. Call light and personal belongings within reach. Will continue to monitor.
[2017-11-09 20:24] VITALS: BP 155/75
[2017-11-09] MEDS ORDERED: HYDROCODONE/APAP 5-325MG TABLET PO PRN (20:45)
[2017-11-09] MEDS: INSULIN REGULAR, HUMAN 300 UNIT/3 ML VIAL SQ PRN (20:59)
--- NOTE | 2017-11-10 05:42 | NUR ---
Pt slept comfortably t/o the night. Insulin coverage given last night per MD's order. Pt is compliant. Assisted to the bathroom as needed. All needs attended to promptly. Will endorse to day shift RN. Continue to monitor.
[2017-11-10] MEDS: BLOOD SUGAR DIAGNOSTIC 1 EACH STRIP VI SCH ×4 (06:30→21:00)
[2017-11-10 07:11] LABS: BASOPHILS # (AUTO) 0.1 K/uL (0.0-8.0); EOSINOPHILS # (AUTO) 0.1 K/uL (0.0-0.7); EOSINOPHILS % (AUTO) 1.3 % (0.0-7.0); HEMATOCRIT 41.2 % (31.2-41.9); HEMOGLOBIN 13.3 g/dL (10.9-14.3); LYMPHOCYTES # (AUTO) 1.5 K/uL (20.0-40.0); LYMPHOCYTES % (AUTO) 16.5 % (20.5-51.5); MEAN CORPUSCULAR HEMOGLOBIN 23.8 uug (24.7-32.8); MEAN CORPUSCULAR HGB CONC 32 g/dL (32.3-35.6); MEAN CORPUSCULAR VOLUME 73.8 fL (75.5-95.3); MONOCYTES % (AUTO) 11.2 % (0.0-11.0); NEUTROPHILS # (AUTO) 6.4 K/uL (1.8-8.9); PLATELET COUNT (AUTO) 289 K/uL (179-408); RED BLOOD CELL COUNT(AUTO) 5.58 MIL/uL (3.63-4.92); WHITE BLOOD COUNT (AUTO) 9.1 K/uL (3.8-11.8)
--- NOTE | 2017-11-10 07:15 | NUR ---
NURSE NOTES: RECEIVED PATIENT AWAKE, ALERT AND ORIENTED, ABLE TO VERBALIZE NEEDS. NO SOB, DISTRESS OR ANY DISCOMFORTS AT THIS TIME. CALL LIGHT WITHIN REACH. ALL NEEDS WERE ATTENDED AND ANTICIPATED.
[2017-11-10 07:20] LABS: CARBON DIOXIDE 27 mmol/L (21-32); CHLORIDE 100 mmol/L (98-107); GLUCOSE 134 mg/dL (74-106); POTASSIUM 3.8 mmol/L (3.5-5.1); UREA NITROGEN, BLOOD 20 mg/dL (7-18)
[2017-11-10 08:13] VITALS: BP 140/64
[2017-11-10] MEDS: ASPIRIN 81 MG TAB.CHEW PO SCH (08:47)
[2017-11-10] MEDS: METFORMIN HCL 500 MG TABLET PO SCH (08:47)
[2017-11-10] MEDS: BENZONATATE 100 MG CAPSULE PO SCH ×3 (08:47→17:18)
[2017-11-10] MEDS: GABAPENTIN 100 MG CAPSULE PO SCH ×3 (08:47→17:18)
[2017-11-10] MEDS: FUROSEMIDE 20 MG TABLET PO SCH (08:48)
[2017-11-10] MEDS: LOSARTAN POTASSIUM 50 MG TABLET PO SCH (08:48)
[2017-11-10] MEDS: hydrALAZINE HCL 50 MG TABLET PO SCH ×2 (08:48→17:18)
[2017-11-10 09:30] LABS: LYMPHOCYTES % (MANUAL) 15 % (20-40)
[2017-11-10 09:31] LABS: MONOCYTES % (MANUAL) 10 % (2-10); NEUTROPHILS % (MANUAL) 75 % (42-75)
--- NOTE | 2017-11-10 16:13 | NUR ---
I agree Addendum: 11/10/17 at 1613 by EDMUNDO VERAS OT Amended: Links added.
--- NOTE | 2017-11-10 18:42 | NUR ---
PATIENT REMAINED TO BE IN STABLE CONDITION WITH NO SOB OR DISTRESS, DENIES ANY PAIN THROUGHOUT THE SHIFT. ALL NEEDS WERE ATTENDED AND ANTICIPATED. CALL LIGHT PLACED WITHIN REACH. WILL ENDORSE TO INCOMING SHIFT.
--- NOTE | 2017-11-10 19:30 | NUR ---
Report received; care assumed. Patient AAO during rounds. NAD noted. Family visiting.
[2017-11-10 20:00] VITALS: BP 150/56
[2017-11-10] MEDS: INSULIN REGULAR, HUMAN 300 UNIT/3 ML VIAL SQ PRN (21:00)
--- NOTE | 2017-11-10 21:00 | NUR ---
[id number]; Regular insulin coverage 3 units given.
[2017-11-11] MEDS: BLOOD SUGAR DIAGNOSTIC 1 EACH STRIP VI SCH ×4 (06:39→20:35)
[2017-11-11 07:25] VITALS: BP 126/69
[2017-11-11] MEDS: BENZONATATE 100 MG CAPSULE PO SCH ×3 (10:09→17:59)
[2017-11-11] MEDS: GABAPENTIN 100 MG CAPSULE PO SCH ×3 (10:09→17:59)
[2017-11-11] MEDS: METFORMIN HCL 500 MG TABLET PO SCH (10:09)
[2017-11-11] MEDS: ASPIRIN 81 MG TAB.CHEW PO SCH (10:09)
[2017-11-11] MEDS: LOSARTAN POTASSIUM 50 MG TABLET PO SCH (10:10)
[2017-11-11] MEDS: FUROSEMIDE 20 MG TABLET PO SCH (10:10)
[2017-11-11] MEDS: hydrALAZINE HCL 50 MG TABLET PO SCH ×2 (10:11→17:59)
--- NOTE | 2017-11-11 19:30 | NUR ---
Patient stable at start of shift. No signs of pain, sob, or acute distress. patient is a/o x3-4, Venezuelan speaking, & able to make needs known. pertinent assessment completed. Vital signs WNL. Bed in low position x2 side rails up. bed alarm checked at start of shift. call light placed within reach of pt. Will continue to monitor pt through shift.
[2017-11-11 20:28] VITALS: BP 141/67
--- NOTE | 2017-11-12 05:37 | NUR ---
Patient slept well through the night. no acute distress noted. vital signs remained WNL. Able to make needs known. all needs attended to. Medications administered as ordered per MD. safety measures implemented. bed in low position, locked, x2 side rails up. assisted patient to restroom during shift. call light within reach. will endorse to day shift nurse.
[2017-11-12] MEDS: BLOOD SUGAR DIAGNOSTIC 1 EACH STRIP VI SCH ×4 (06:33→20:35)
[2017-11-12 08:04] VITALS: BP 139/61
[2017-11-12] MEDS: ASPIRIN 81 MG TAB.CHEW PO SCH (08:41)
[2017-11-12] MEDS: hydrALAZINE HCL 50 MG TABLET PO SCH ×2 (08:41→17:43)
[2017-11-12] MEDS: FUROSEMIDE 20 MG TABLET PO SCH (08:42)
[2017-11-12] MEDS: LOSARTAN POTASSIUM 50 MG TABLET PO SCH (08:42)
[2017-11-12] MEDS: METFORMIN HCL 500 MG TABLET PO SCH (08:42)
[2017-11-12] MEDS: GABAPENTIN 100 MG CAPSULE PO SCH ×3 (08:42→17:43)
[2017-11-12] MEDS: BENZONATATE 100 MG CAPSULE PO SCH ×3 (08:42→17:43)
--- NOTE | 2017-11-12 08:50 | NUR ---
I agree Addendum: 11/12/17 at 0851 by EDMUNDO VERAS OT Amended: Links added.
--- NOTE | 2017-11-12 19:30 | NUR ---
Patient currently lying down comfortably at start of shift on bed. No acute distress noted. Vital signs WNL. Plan for patient is to be discharged tomorrow. TMS completed by MD per day shift RN. Pertinent assessment completed. Bed in low position x2 side rails up. call light within reach of pt. will continue to monitor pt through shift.
[2017-11-12 20:19] VITALS: BP 138/67
--- NOTE | 2017-11-13 05:37 | NUR ---
Patient slept well through shift. no acute distress noted. vital signs remained within limits. all needs attended to promptly. safety measures implemented. call light within reach of patient. will endorse to day shift RN.
[2017-11-13] MEDS: BLOOD SUGAR DIAGNOSTIC 1 EACH STRIP VI SCH ×3 (06:35→17:26)
--- NOTE | 2017-11-13 06:35 | NUR ---
Blood sugar 166 this AM. will endorse to day shift RN to cover with insulin with breakfast tray.
[2017-11-13] MEDS: LOSARTAN POTASSIUM 50 MG TABLET PO SCH (08:31)
[2017-11-13] MEDS: GABAPENTIN 100 MG CAPSULE PO SCH ×3 (08:32→17:25)
[2017-11-13] MEDS: FUROSEMIDE 20 MG TABLET PO SCH (08:32)
[2017-11-13] MEDS: BENZONATATE 100 MG CAPSULE PO SCH ×3 (08:32→17:25)
[2017-11-13] MEDS: ASPIRIN 81 MG TAB.CHEW PO SCH (08:33)
[2017-11-13] MEDS: METFORMIN HCL 500 MG TABLET PO SCH (08:33)
[2017-11-13] MEDS: hydrALAZINE HCL 50 MG TABLET PO SCH ×2 (08:44→17:25)
--- NOTE | 2017-11-13 08:58 | NUR ---
I agree Addendum: 11/13/17 at 0859 by EDMUNDO VERAS OT Amended: Links added.
[2017-11-13 09:46] VITALS: BP 143/71
--- NOTE | 2017-11-13 12:22 | NUR ---
D/C NOTE WENT OVER D/C INSTRUCTION SHE VERBALIZED UNDERSTANDING. D/C ORDER IN CHART. MED PRESCRIPTIONS GIVEN. SHE SAYS HER DAUGHTER WILL PICK HER UP AFTER WORK AROUND [id number]. SHE IS TO F/U WITH HOME HEALTH AND HAS A F/U APPT SCHEDULED FOR THE . SHE VERBALIZED UNDERSTANDING.
--- NOTE | 2017-11-13 16:45 | NUR ---
D/C NOTE DAUGHTER HERE TO PICK HER UP SHE LEFT . ARM BAND REMOVED AND D/C INSTRUCTIONS AND PACKET GIVEN
[2017-11-13 17:25] VITALS: BP 122/72
[2017-11-21] MEDS ORDERED: APIXABAN 5 MG TABLET PO SCH (09:00)
== END 2017-11-13 17:00 | disposition home health service (06) | DRG 57 ==
PROVIDERS: ADMIT Physical Medicine & Rehabilitation Pain Medicine; ATTEND Physical Medicine & Rehabilitation Pain Medicine
DX: I69.398 Other sequelae of cerebral infarction (principal); I48.91 Unspecified atrial fibrillation; I11.0 Hypertensive heart disease with heart failure; J84.112 Idiopathic pulmonary fibrosis; K86.1 Other chronic pancreatitis; I50.32 Chronic diastolic (congestive) heart failure; Z91.81 History of falling; D72.829 Elevated white blood cell count, unspecified; F41.9 Anxiety disorder, unspecified; Z88.1 Allergy status to other antibiotic agents; Z88.8 Allergy status to other drugs, medicaments and biological substances; Z88.4 Allergy status to anesthetic agent
CPT/HCPCS: 36415; 70030-TC; 83735; 84100; 85025; 87077; 87086; 92523; 97110; 97112; 97116; 97165; 97530; 97535; J1815

== ENCOUNTER 2018-06-30 11:00 | Inpatient (IN) | payer MEDICARE, OTHER ==
[~2018-06-30] VITALS: Ht 144.8 cm; Wt 65.3 kg
[~2018-06-30 11:00] MED LIST changes: +METF-440 PO; -METF500T4 PO; +OLME20TA13 PO; -OLME20TA21 PO
--- NOTE | 2018-06-30 11:10 | NUR ---
PATIENT HERE WITH HER DAUGHTER FOR C/O SOB AND ARM BRUISING. PT IS A/A/OX3 IN NO DISTRESS. PLACED ON A MONITOR..
[2018-06-30] MEDS ORDERED: OLME20TA13 PO (11:27)
[2018-06-30] MEDS ORDERED: APIX5TAB PO (11:27)
[2018-06-30 11:40] LABS: BASOPHILS # (AUTO) 0.1 K/uL (0.0-8.0); BASOPHILS % (AUTO) 0.8 % (0.0-2.0); EOSINOPHILS # (AUTO) 0.1 K/uL (0.0-0.7); EOSINOPHILS % (AUTO) 2.2 % (0.0-7.0); HEMATOCRIT 36.5 % (31.2-41.9); HEMOGLOBIN 11.6 g/dL (10.9-14.3); LYMPHOCYTES # (AUTO) 1.9 K/uL (20.0-40.0); MEAN CORPUSCULAR HEMOGLOBIN 23.6 uug (24.7-32.8); MEAN CORPUSCULAR HGB CONC 32 g/dL (32.3-35.6); MONOCYTES # (AUTO) 0.6 K/uL (2.0-10.0); MONOCYTES % (AUTO) 9.7 % (0.0-11.0); NEUTROPHILS # (AUTO) 3.8 K/uL (1.8-8.9); NEUTROPHILS % (AUTO) 58.3 % (38.5-71.5); PLATELET COUNT (AUTO) 180 K/uL (179-408); RED BLOOD CELL COUNT(AUTO) 4.93 MIL/uL (3.63-4.92); WHITE BLOOD COUNT (AUTO) 6.5 K/uL (3.8-11.8)
[2018-06-30 11:45] LABS: CARBON DIOXIDE 27 mmol/L (21-32); CHLORIDE 105 mmol/L (98-107); CREATININE 0.8 mg/dL (0.6-1.3); GLUCOSE 148 mg/dL (74-106); POTASSIUM 3.8 mmol/L (3.5-5.1); UREA NITROGEN, BLOOD 13 mg/dL (7-18)
[2018-06-30 11:58] LABS: ALANINE AMINOTRANSFERASE 20 U/L (14-59); ALKALINE PHOSPHATASE 114 U/L (50-136); ASPARTATE AMINOTRANSFERASE 18 U/L (15-37); BILIRUBIN,DIRECT 0.1 mg/dL (0.0-0.2); BILIRUBIN,TOTAL 0.6 mg/dL (0.2-1.0); TOTAL PROTEIN, SERUM 7.8 g/dL (6.4-8.2)
[2018-06-30 12:09] LABS: BASOPHILS % (MANUAL) 1 % (0-2); LYMPHOCYTES % (MANUAL) 33 % (20-40); MONOCYTES % (MANUAL) 4 % (2-10); NEUTROPHILS % (MANUAL) 62 % (42-75)
--- NOTE | 2018-06-30 12:09 | NUR ---
AWAITING TEST RESULTS. PATIENT IS AWAKE AND ALERT WITH NO NEW COMPLAINTS
[2018-06-30] MEDS ORDERED: FUROSEMIDE 20 MG/2 ML VIAL IV ONE (12:30)
[2018-06-30] MEDS ORDERED: FUROSEMIDE 40 MG/4 ML VIAL ONE (12:48)
--- NOTE | 2018-06-30 13:05 | NUR ---
PATIENT AND FAMILY AWARE OF PENDING ADMISSION TO HOSPITAL. REPORT GIVEN TO FARIDEH ALLRED ON TELE FLOOR.
[2018-06-30 16:05] VITALS: BP 166/88
[2018-06-30] MEDS ORDERED: ONDANSETRON 4 MG/2 ML VIAL IV PRN (16:15)
[2018-06-30] MEDS ORDERED: MIRALAX 17 GM POWD.PACK PO PRN (16:15)
[2018-06-30] MEDS ORDERED: TEMAZEPAM 15 MG CAPSULE PO PRN (16:15)
[2018-06-30] MEDS ORDERED: DEXTROSE 50% 50 ML DISP.SYRIN IV PRN (16:15)
[2018-06-30] MEDS ORDERED: ALBUTEROL SULFATE 2.5 MG/3 ML NEBU NEB PRN (16:15)
[2018-06-30] MEDS ORDERED: TEMAZEPAM 7.5 MG CAPSULE PO PRN (16:45)
[2018-06-30] MEDS ORDERED: Medication Not On Formulary EA (Olmesartan Medoxomil (Benicar) 20 MG) PO SCH (17:00)
[2018-06-30] MEDS ORDERED: APIXABAN 5 MG TABLET PO ONE (17:00)
[2018-06-30] MEDS: BLOOD SUGAR DIAGNOSTIC 1 EACH STRIP VI SCH ×2 (17:14→20:26)
[2018-06-30] MEDS: CLONIDINE HCL 0.1 MG TABLET PO PRN (17:19)
--- NOTE | 2018-06-30 18:38 | NUR ---
END OF SHIFT NOTE: PATIENT AOX3 IN BED. ABLE TO AMBULATE WITH ASSIST, BECOMES SOB WHILE AMBULATING TO THE BATHROOM AND BACK. PATIENT IS ON OXYGEN 1L NC SATURATING 99%. PATIENT A-FIB ON INSULATION MANAGER. DENIES CHEST PAIN. PATIENT STATED SHE HAS PAIN TO LEFT ARM AND LEFT EAR.
--- NOTE | 2018-06-30 19:30 | NUR ---
nsg: pt received a/o x 4. on 1 L O2 via nc, experienced sob on exertion. lungs sound clear to auscultate. tele, afib with Hr in 50's. ambulatory with standby assist. bed alarm on. call light within reach.
[2018-06-30 19:35] VITALS: BP 145/55
[2018-06-30] MEDS: DOCUSATE SODIUM 100 MG CAPSULE PO SCH (20:19)
[2018-06-30] MEDS: FUROSEMIDE 20 MG/2 ML VIAL IV SCH (20:19)
[2018-06-30] MEDS: VALSARTAN 160 MG TABLET PO SCH (20:19)
[2018-06-30] MEDS: INSULIN REGULAR, HUMAN 300 UNIT/3 ML VIAL SQ PRN (20:35)
[2018-06-30] MEDS: ACETAMINOPHEN 325 MG TABLET PO PRN (20:37)
[2018-06-30 23:35] VITALS: BP 154/51
--- NOTE | 2018-07-01 | NUR ---
nsg: no change in condition.
[2018-07-01 04:44] VITALS: BP 147/63
--- NOTE | 2018-07-01 05:31 | NUR ---
nsg: no acute distress noted. denies discomfort. HR as low as 37, mostly in 50's, afib. denies pain at this time. cont to monitor.
[2018-07-01] MEDS: PANTOPRAZOLE SODIUM 40 MG TABLET.DR PO SCH (06:07)
[2018-07-01] MEDS: BLOOD SUGAR DIAGNOSTIC 1 EACH STRIP VI SCH ×4 (06:12→20:23)
[2018-07-01 06:17] LABS: BASOPHILS # (AUTO) 0.1 K/uL (0.0-8.0); BASOPHILS % (AUTO) 1.5 % (0.0-2.0); EOSINOPHILS # (AUTO) 0.2 K/uL (0.0-0.7); EOSINOPHILS % (AUTO) 2.9 % (0.0-7.0); HEMATOCRIT 36.9 % (31.2-41.9); HEMOGLOBIN 12.1 g/dL (10.9-14.3); LYMPHOCYTES # (AUTO) 1.9 K/uL (20.0-40.0); LYMPHOCYTES % (AUTO) 30.3 % (20.5-51.5); MEAN CORPUSCULAR HEMOGLOBIN 23.6 uug (24.7-32.8); MEAN CORPUSCULAR HGB CONC 33 g/dL (32.3-35.6); MEAN CORPUSCULAR VOLUME 72.4 fL (75.5-95.3); MONOCYTES # (AUTO) 0.7 K/uL (2.0-10.0); NEUTROPHILS # (AUTO) 3.4 K/uL (1.8-8.9); NEUTROPHILS % (AUTO) 54.3 % (38.5-71.5); PLATELET COUNT (AUTO) 197 K/uL (179-408); WHITE BLOOD COUNT (AUTO) 6.3 K/uL (3.8-11.8)
[2018-07-01 06:37] LABS: ALANINE AMINOTRANSFERASE 22 U/L (14-59); ALKALINE PHOSPHATASE 110 U/L (50-136); ASPARTATE AMINOTRANSFERASE 23 U/L (15-37); BILIRUBIN,TOTAL 0.8 mg/dL (0.2-1.0); CARBON DIOXIDE 27 mmol/L (21-32); CHLORIDE 101 mmol/L (98-107); CHOLESTEROL 135 mg/dL (<200); CREATININE 0.8 mg/dL (0.6-1.3); GLUCOSE 110 mg/dL (74-106); HDL CHOLESTEROL 50 mg/dL (40-60); PHOSPHOROUS 4.7 mg/dL (2.5-4.9); POTASSIUM 3.6 mmol/L (3.5-5.1); TOTAL PROTEIN, SERUM 7.9 g/dL (6.4-8.2); TRIGLYCERIDES 86 MG/DL (30-150); UREA NITROGEN, BLOOD 18 mg/dL (7-18)
[2018-07-01 06:42] LABS: THYROID STIMULATING HORMONE 4.413 mIU/mL (0.358-3.740)
[2018-07-01 06:56] LABS: IRON, SERUM 39 ug/dL (50-175)
[2018-07-01] MEDS: METFORMIN HCL 500 MG TABLET PO SCH (08:47)
[2018-07-01] MEDS: CLONIDINE HCL 0.1 MG TABLET PO PRN (08:47)
[2018-07-01] MEDS: VALSARTAN 160 MG TABLET PO SCH ×2 (08:47→20:19)
[2018-07-01] MEDS: FUROSEMIDE 20 MG/2 ML VIAL IV SCH (08:49)
--- NOTE | 2018-07-01 09:44 | NUR ---
SBAR report received, Pt resting in bed, AAOx4, no acute distress or SOB on 1L NC O2. Pt denies pain, but describes soreness from significant bruise on left forearm. BP 160/49, HR 60, Catapres administered per PRN orders. Pt compliant with all routine morning medication administration. Cooperative with PT, stable gait but stand by supervision required. IV intact, flushed, and patent. All safety and comfort needs met at this time. Bed in locked and lowest position, side rails upx2. Pt personal belongings and call light placed within reach. Will continue to monitor.
[2018-07-01 11:48] VITALS: BP 107/48
[2018-07-01 16:00] VITALS: BP 121/50
[2018-07-01] MEDS: INSULIN REGULAR, HUMAN 300 UNIT/3 ML VIAL SQ PRN (17:14)
--- NOTE | 2018-07-01 18:48 | NUR ---
No changes to Pt plan of care. All safety and comfort needs attended to promptly this shift. Last BS of 132 covered with 2 units, family visited for dinner. Currently, controlled A Fib with HR of 58. Call light within reach. Will continue to monitor and endorse to oncoming night clerk.
--- NOTE | 2018-07-01 19:10 | NUR ---
RECEIVED PT AWAKE ON BED, AAOX4, NO COMPLAINTS OF ANY DISCOMFORT AT THIS TIME. ON TELE AFIB CONTROLLED RHYTHM WITH HR OF 66. IV SITE ON L HAND, PATENT AND INTACT. SAFETY MEASURES INITIATED, CALL [place] WITHIN REACH.
[2018-07-01 19:31] VITALS: BP 179/76
[2018-07-01] MEDS: DOCUSATE SODIUM 100 MG CAPSULE PO SCH (20:19)
[2018-07-01 23:39] VITALS: BP 169/67
[2018-07-02] MEDS: ACETAMINOPHEN 325 MG TABLET PO PRN ×2 (01:13→20:18)
[2018-07-02 03:43] VITALS: BP 173/61
[2018-07-02] MEDS: CLONIDINE HCL 0.1 MG TABLET PO PRN (05:10)
[2018-07-02] MEDS: PANTOPRAZOLE SODIUM 40 MG TABLET.DR PO SCH (06:10)
[2018-07-02] MEDS: BLOOD SUGAR DIAGNOSTIC 1 EACH STRIP VI SCH ×4 (06:34→20:14)
--- NOTE | 2018-07-02 06:47 | NUR ---
PT ON BED, AAOX4, DENIES ANY PAIN OR SOB AT THIS TIME. IV SITE ON L HAND, PATENT AND INTACT. SAFE ENVIRONMENT MAINTAINED AT ALL TIMES. ALL NEEDS ATTENDED AND MET, CALL [place] WITHIN REACH. Addendum: 07/02/18 at 0650 by FRANSICO YOUNGBLOOD RN ON TELE AFIB CONTROLLED RHYTHM WITH HR OF 61
[2018-07-02] MEDS: INSULIN REGULAR, HUMAN 300 UNIT/3 ML VIAL SQ PRN ×2 (07:40→11:59)
[2018-07-02 08:00] VITALS: BP 112/53
[2018-07-02] MEDS: VALSARTAN 160 MG TABLET PO SCH ×2 (09:00→20:15)
[2018-07-02] MEDS: FUROSEMIDE 20 MG TABLET PO SCH (09:00)
[2018-07-02] MEDS: METFORMIN HCL 500 MG TABLET PO SCH (09:09)
[2018-07-02 11:03] VITALS: BP 120/37
--- NOTE | 2018-07-02 18:01 | NUR ---
NURSE NOTES; patient alert and oriented remained stable throughout the shift with no SOB or distress noted. denies any pain or discomforts. IV site patent and intact. Blood sugar checks done as scheduled. Administered all due medications and insulin as ordered. patient able to ambulate with assistance. All needs were attended anticipated. Hourly rounding done. safety precautions observed. Will continue to monitor. Will endorse accordingly to next shift for continuity of care.
--- NOTE | 2018-07-02 19:10 | NUR ---
RECEIVED PT AWAKE ON BED, AAOX4, NO SIGNS OF ACUTE DISTRESS NOTED AT THIS TIME. IV SITE, PATENT AND INTACT. FAMILY AT BEDSIDE. SAFETY MEASURES INITIATED, CALL [place] AND PT BELONGING PLACED WITHIN REACH.
[2018-07-02 20:00] VITALS: BP 156/76
[2018-07-02] MEDS: DOCUSATE SODIUM 100 MG CAPSULE PO SCH (20:11)
[2018-07-03 06:06] VITALS: BP 153/70
[2018-07-03] MEDS: PANTOPRAZOLE SODIUM 40 MG TABLET.DR PO SCH (06:14)
[2018-07-03] MEDS: BLOOD SUGAR DIAGNOSTIC 1 EACH STRIP VI SCH (06:18)
[2018-07-03 06:34] LABS: BASOPHILS # (AUTO) 0.1 K/uL (0.0-8.0); BASOPHILS % (AUTO) 1.1 % (0.0-2.0); EOSINOPHILS # (AUTO) 0.2 K/uL (0.0-0.7); EOSINOPHILS % (AUTO) 2.9 % (0.0-7.0); HEMATOCRIT 36.5 % (31.2-41.9); HEMOGLOBIN 11.8 g/dL (10.9-14.3); LYMPHOCYTES # (AUTO) 1.9 K/uL (20.0-40.0); MEAN CORPUSCULAR HEMOGLOBIN 23.8 uug (24.7-32.8); MEAN CORPUSCULAR HGB CONC 32 g/dL (32.3-35.6); MEAN CORPUSCULAR VOLUME 73.8 fL (75.5-95.3); MONOCYTES # (AUTO) 0.6 K/uL (2.0-10.0); MONOCYTES % (AUTO) 9.5 % (0.0-11.0); NEUTROPHILS # (AUTO) 3.8 K/uL (1.8-8.9); NEUTROPHILS % (AUTO) 57.5 % (38.5-71.5); PLATELET COUNT (AUTO) 199 K/uL (179-408); RED BLOOD CELL COUNT(AUTO) 4.95 MIL/uL (3.63-4.92); WHITE BLOOD COUNT (AUTO) 6.7 K/uL (3.8-11.8)
--- NOTE | 2018-07-03 06:43 | NUR ---
PT AWAKE ON BED, AAOX4, NO SIGNS OF RESPIRATORY DISTRESS NOTED. DENIES ANY DISCOMFORT AT THIS TIME. IV SITE ON L HAND,PATENT AND INTACT. SAFE ENVIRONMENT MAINTAINED AT ALL TIMES, CALL [place] WITHIN REACH.
[2018-07-03 06:50] LABS: CARBON DIOXIDE 28 mmol/L (21-32); CHLORIDE 102 mmol/L (98-107); CREATININE 0.8 mg/dL (0.6-1.3); GLUCOSE 137 mg/dL (74-106); MAGNESIUM 2.1 mg/dL (1.8-2.4); PHOSPHOROUS 3.9 mg/dL (2.5-4.9); POTASSIUM 3.7 mmol/L (3.5-5.1); UREA NITROGEN, BLOOD 19 mg/dL (7-18)
[2018-07-03] MEDS: METFORMIN HCL 500 MG TABLET PO SCH (08:02)
[2018-07-03] MEDS: FUROSEMIDE 20 MG TABLET PO SCH (08:02)
[2018-07-03] MEDS: VALSARTAN 160 MG TABLET PO SCH (08:02)
[2018-07-03] MEDS ORDERED: AMLODIPINE 5 MG TABLET PO SCH (09:00)
[2018-07-03 09:29] LABS: LYMPHOCYTES % (MANUAL) 30 % (20-40); MONOCYTES % (MANUAL) 10 % (2-10); NEUTROPHILS % (MANUAL) 60 % (42-75)
[2018-07-03] MEDS ORDERED: FERROUS SULFATE 325 MG TABEC PO SCH (11:15)
[2018-07-03] MEDS: ACETAMINOPHEN 325 MG TABLET PO PRN (11:39)
[2018-07-03 11:47] VITALS: BP 130/72
[2018-07-03] MEDS ORDERED: DOCU100C36 PO (12:43)
[2018-07-03] MEDS ORDERED: FERR325T28 PO (12:46)
[2018-07-03 15:49] VITALS: BP 184/82
[2018-07-03 16:14] VITALS: BP 184/82
[2018-07-03] MEDS: CLONIDINE HCL 0.1 MG TABLET PO PRN (16:14)
--- NOTE | 2018-07-03 18:34 | NUR ---
d/c instruction and education given to the ptbrian/jelena hassan per md orders,pt left the facility via private car in stable condition
== END 2018-07-03 18:25 | disposition home health service (06) | DRG 292 ==
LOC: ER 11:00 → TELE 13:39 → MED 07-02 16:24
PROVIDERS: ADMIT Internal Medicine; ATTEND Internal Medicine
DX: I11.0 Hypertensive heart disease with heart failure (principal); D68.59 Other primary thrombophilia; K92.2 Gastrointestinal hemorrhage, unspecified; K86.1 Other chronic pancreatitis; K86.2 Cyst of pancreas; I50.33 Acute on chronic diastolic (congestive) heart failure; I48.2 Chronic atrial fibrillation; Z79.01 Long term (current) use of anticoagulants; I25.10 Atherosclerotic heart disease of native coronary artery without angina pectoris; Z95.5 Presence of coronary angioplasty implant and graft; Z74.09 Other reduced mobility; J84.10 Pulmonary fibrosis, unspecified; Z90.710 Acquired absence of both cervix and uterus; Z82.49 Family history of ischemic heart disease and other diseases of the circulatory system; Z86.73 Personal history of transient ischemic attack (TIA), and cerebral infarction without residual deficits; M81.0 Age-related osteoporosis without current pathological fracture; E11.9 Type 2 diabetes mellitus without complications; I08.0 Rheumatic disorders of both mitral and aortic valves; S50.12XA Contusion of left forearm, initial encounter; X58.XXXA Exposure to other specified factors, initial encounter; Y92.019 Unspecified place in single-family (private) house as the place of occurrence of the external cause; K76.0 Fatty (change of) liver, not elsewhere classified; R91.1 Solitary pulmonary nodule; K57.30 Diverticulosis of large intestine without perforation or abscess without bleeding; Z79.84 Long term (current) use of oral hypoglycemic drugs; I25.2 Old myocardial infarction; F41.0 Panic disorder [episodic paroxysmal anxiety]; M48.00 Spinal stenosis, site unspecified; S40.029A Contusion of unspecified upper arm, initial encounter
CPT/HCPCS: 36415; 70030-TC; 71045; 73090; 83550; 83735; 84100; 84443; 85025; 85730; 93005; 93307; 97116; 97530; A4663; J1815; J1940

== ENCOUNTER 2018-08-14 18:59 | Inpatient (IN) | payer MEDICARE, OTHER ==
[~2018-08-14] VITALS: Ht 154.9 cm; Wt 65.8 kg
[~2018-08-14 18:59] MED LIST changes: -ASPI81TA31 PO; -BENZ-13 PO; +DOCU100C36 PO; +FERR325T28 PO; -HYDR-4077 PO
[2018-08-14 19:58] LABS: CARBON DIOXIDE 28 mmol/L (21-32); CHLORIDE 103 mmol/L (98-107); CREATININE 0.8 mg/dL (0.6-1.3); GLUCOSE 125 mg/dL (74-106); POTASSIUM 4.1 mmol/L (3.5-5.1); UREA NITROGEN, BLOOD 16 mg/dL (7-20)
[2018-08-14 19:59] LABS: ALANINE AMINOTRANSFERASE 31 U/L (14-59); ALKALINE PHOSPHATASE 121 U/L (50-136); ASPARTATE AMINOTRANSFERASE 21 U/L (15-37); BILIRUBIN,DIRECT 0.1 mg/dL (0.0-0.2); BILIRUBIN,TOTAL 0.4 mg/dL (0.1-1.0); TOTAL PROTEIN, SERUM 8.3 g/dL (6.4-8.2)
[2018-08-14 20:05] LABS: HEMATOCRIT 36.9 % (37-47); HEMOGLOBIN 11.9 G/DL (12.0-16.0); WHITE BLOOD COUNT (AUTO) 6.1 K/UL (4.0-11.2)
[2018-08-14 20:05] LABS: *BILIRUBIN,URIN NEGATIVE (NEGATIVE); *BLOOD, URINE NEGATIVE (NEGATIVE); *COLOR,URINE YELLOW (YELLOW); *KETONES,URINE NEGATIVE (NEGATIVE); *PROTEIN,URINE 1+ (NEGATIVE); *UROBILINOGEN,URINE 0.2 E.U./dl (NORMAL); LEUKOCYTE ESTERASE ,URINE 2+ (NEGATIVE); NITRITE, URINE NEGATIVE (NEGATIVE); PH,URINE 5.5 (5.0-8.0); UGLUCOSE NEGATIVE (NEGATIVE)
[2018-08-14 20:06] LABS: EOSINOPHILS % (AUTO) 1.6 % (0.0-7.0); MEAN CORPUSCULAR HEMOGLOBIN 24.2 UUG (27.0-31.0); MEAN CORPUSCULAR HGB CONC 32 g/dL (32.0-37.0); MEAN CORPUSCULAR VOLUME 75.3 FL (81.0-99.0); MONOCYTES % (AUTO) 9.1 % (0.0-11.0); NEUTROPHILS % (AUTO) 61.9 % (38.5-71.5); PLATELET COUNT (AUTO) 222 K/UL (150-450)
[2018-08-14 20:07] LABS: BASOPHILS # (AUTO) 0.1 K/uL (0.0-8.0); BASOPHILS % (AUTO) 1.4 % (0.0-2.0); EOSINOPHILS # (AUTO) 0.1 K/uL (0.0-0.7); LYMPHOCYTES # (AUTO) 1.6 K/UL (0.8-4.8); MONOCYTES # (AUTO) 0.6 K/UL (0.1-1.30); NEUTROPHILS # (AUTO) 3.7 K/UL (1.8-8.9)
[2018-08-14 20:19] LABS: *CLARITY,URINE SLIGHTLY CLOUDY (CLEAR)
[2018-08-14 20:23] LABS: BACTERIA,URINE MANY /HPF (NONE SEEN); RBC,URINE 0-3 /HPF (0-3); SQUAMOUS EPITHELIAL CELL,UR MANY /HPF (NONE SEEN); WBC,URINE 80-100 /HPF (0-3)
[2018-08-14] MEDS ORDERED: NITROGLYCERIN OINT 1 GM PACKET TP ONE ×2 (20:43→20:45)
[2018-08-14] MEDS ORDERED: ENALAPRILAT DIHYDRATE 1.25 MG/1 ML VIAL IV ONE ×2 (20:44→20:45)
[2018-08-14] MEDS ORDERED: FUROSEMIDE 40 MG/4 ML VIAL ONE (20:44)
[2018-08-14] MEDS ORDERED: FUROSEMIDE 20 MG/2 ML VIAL IV ONE (20:45)
[2018-08-14] MEDS ORDERED: ACETAMINOPHEN 325 MG TABLET PO ONE (20:45)
[2018-08-14] MEDS ORDERED: ACETAMINOPHEN 325 MG TABLET ONE (20:52)
[2018-08-14] MEDS ORDERED: ALBUTEROL SULFATE 2.5 MG/3 ML NEBU NEB PRN (22:15)
[2018-08-14] MEDS ORDERED: ZOLPIDEM 5 MG TABLET PO PRN (22:15)
[2018-08-14] MEDS ORDERED: ONDANSETRON 4 MG/2 ML VIAL IV PRN (22:15)
[2018-08-14] MEDS ORDERED: LORAZEPAM 1 MG TABLET PO PRN (23:30)
[2018-08-14] MEDS ORDERED: CEFTRIAXONE 1 G VIAL ONE (23:31)
[2018-08-14 23:58] VITALS: BP 185/68
[2018-08-14] MEDS: CEFTRIAXONE 1 G in IV DEXTROSE 5% 50 ML IV SCH (23:58)
[2018-08-15] MEDS: hydrALAZINE HCL 50 MG TABLET PO PRN (01:29)
[2018-08-15 03:20] VITALS: BP 128/46
[2018-08-15] MEDS: ACETAMINOPHEN 325 MG TABLET PO PRN ×3 (03:46→22:20)
[2018-08-15 06:04] LABS: BASOPHILS # (AUTO) 0.1 K/uL (0.0-8.0); BASOPHILS % (AUTO) 1.2 % (0.0-2.0); EOSINOPHILS # (AUTO) 0.1 K/uL (0.0-0.7); EOSINOPHILS % (AUTO) 1.6 % (0.0-7.0); HEMATOCRIT 33.4 % (31.2-41.9); HEMOGLOBIN 10.8 g/dL (10.9-14.3); LYMPHOCYTES # (AUTO) 1.5 K/uL (20.0-40.0); LYMPHOCYTES % (AUTO) 20.4 % (20.5-51.5); MEAN CORPUSCULAR HEMOGLOBIN 23.8 uug (24.7-32.8); MEAN CORPUSCULAR HGB CONC 32 g/dL (32.3-35.6); MEAN CORPUSCULAR VOLUME 73.4 fL (75.5-95.3); MONOCYTES # (AUTO) 0.8 K/uL (2.0-10.0); MONOCYTES % (AUTO) 11.3 % (0.0-11.0); NEUTROPHILS # (AUTO) 4.7 K/uL (1.8-8.9); NEUTROPHILS % (AUTO) 65.5 % (38.5-71.5); PLATELET COUNT (AUTO) 196 K/uL (179-408); RED BLOOD CELL COUNT(AUTO) 4.55 MIL/uL (3.63-4.92); WHITE BLOOD COUNT (AUTO) 7.1 K/uL (3.8-11.8)
[2018-08-15 06:23] LABS: ALANINE AMINOTRANSFERASE 26 U/L (14-59); ALKALINE PHOSPHATASE 104 U/L (50-136); ASPARTATE AMINOTRANSFERASE 22 U/L (15-37); BILIRUBIN,TOTAL 0.6 mg/dL (0.2-1.0); CARBON DIOXIDE 31 mmol/L (21-32); CHLORIDE 102 mmol/L (98-107); CHOLESTEROL 114 mg/dL (<200); CREATININE 0.8 mg/dL (0.6-1.3); GLUCOSE 110 mg/dL (74-106); HDL CHOLESTEROL 40 mg/dL (40-60); MAGNESIUM 1.8 mg/dL (1.8-2.4); PHOSPHOROUS 4.5 mg/dL (2.5-4.9); POTASSIUM 3.3 mmol/L (3.5-5.1); TOTAL PROTEIN, SERUM 7.3 g/dL (6.4-8.2); TRIGLYCERIDES 119 MG/DL (30-150); UREA NITROGEN, BLOOD 15 mg/dL (7-18)
[2018-08-15 06:40] LABS: IRON, SERUM 21 ug/dL (50-175); THYROID STIMULATING HORMONE 6.185 mIU/mL (0.358-3.740)
[2018-08-15] MEDS: PANTOPRAZOLE SODIUM 40 MG TABLET.DR PO SCH (07:01)
[2018-08-15] MEDS: FERROUS SULFATE 325 MG TABEC PO SCH (08:42)
[2018-08-15] MEDS: METFORMIN HCL 500 MG TABLET PO SCH (08:42)
[2018-08-15] MEDS ORDERED: Medication Not On Formulary EA (Olmesartan Medoxomil (Benicar) 20 MG) PO SCH (09:00)
[2018-08-15] MEDS ORDERED: FUROSEMIDE 20 MG/2 ML VIAL IV SCH (09:00)
[2018-08-15] MEDS ORDERED: APIXABAN 5 MG TABLET PO ONE (09:00)
[2018-08-15] MEDS ORDERED: DEXTROSE 50% 50 ML DISP.SYRIN IV PRN (10:15)
[2018-08-15 10:59] VITALS: BP 121/63
[2018-08-15] MEDS ORDERED: POTASSIUM CHLORIDE 20 MEQ TAB.PRT.SR PO ONE (11:35)
[2018-08-15] MEDS: BLOOD SUGAR DIAGNOSTIC 1 EACH STRIP VI SCH ×3 (11:48→20:51)
[2018-08-15] MEDS: VALSARTAN 160 MG TABLET PO SCH ×2 (11:50→20:52)
[2018-08-15] MEDS ORDERED: SOD FERRIC GLUC COMPLX/SUCROSE 125 MG in IV NORMAL SALINE 100 ML IV SCH (14:00)
[2018-08-15] MEDS ORDERED: LEVALBUTEROL HCL NEB 0.63 MG/3 ML NEBU NEB PRN (15:00)
[2018-08-15 15:14] VITALS: BP 157/62
[2018-08-15] MEDS: AMLODIPINE 5 MG TABLET PO SCH (16:00)
[2018-08-15] MEDS: APIXABAN 5 MG PO SCH (18:09)
[2018-08-15 19:18] VITALS: BP 167/67
[2018-08-15] MEDS: DOCUSATE SODIUM 100 MG CAPSULE PO SCH (20:52)
[2018-08-15] MEDS: CEFTRIAXONE 1 G in IV DEXTROSE 5% 50 ML IV SCH (22:14)
[2018-08-15 23:58] VITALS: BP 155/67
[2018-08-16 03:36] VITALS: BP 145/47
[2018-08-16 05:00] LABS: BASOPHILS # (AUTO) 0.1 K/uL (0.0-8.0); BASOPHILS % (AUTO) 1.2 % (0.0-2.0); EOSINOPHILS # (AUTO) 0.1 K/uL (0.0-0.7); HEMATOCRIT 32.5 % (31.2-41.9); HEMOGLOBIN 10.8 g/dL (10.9-14.3); LYMPHOCYTES # (AUTO) 1.6 K/uL (20.0-40.0); LYMPHOCYTES % (AUTO) 28.3 % (20.5-51.5); MEAN CORPUSCULAR HEMOGLOBIN 24.2 uug (24.7-32.8); MEAN CORPUSCULAR HGB CONC 33 g/dL (32.3-35.6); MONOCYTES # (AUTO) 0.7 K/uL (2.0-10.0); MONOCYTES % (AUTO) 12.9 % (0.0-11.0); NEUTROPHILS # (AUTO) 3.2 K/uL (1.8-8.9); NEUTROPHILS % (AUTO) 55.6 % (38.5-71.5); PLATELET COUNT (AUTO) 201 K/uL (179-408); RED BLOOD CELL COUNT(AUTO) 4.45 MIL/uL (3.63-4.92); WHITE BLOOD COUNT (AUTO) 5.8 K/uL (3.8-11.8)
[2018-08-16 05:16] LABS: ALANINE AMINOTRANSFERASE 22 U/L (14-59); ALKALINE PHOSPHATASE 94 U/L (50-136); ASPARTATE AMINOTRANSFERASE 16 U/L (15-37); BILIRUBIN,TOTAL 0.3 mg/dL (0.2-1.0); CARBON DIOXIDE 29 mmol/L (21-32); CHLORIDE 103 mmol/L (98-107); GLUCOSE 101 mg/dL (74-106); MAGNESIUM 1.8 mg/dL (1.8-2.4); PHOSPHOROUS 4.7 mg/dL (2.5-4.9); POTASSIUM 3.7 mmol/L (3.5-5.1); TOTAL PROTEIN, SERUM 7.3 g/dL (6.4-8.2); UREA NITROGEN, BLOOD 22 mg/dL (7-18)
[2018-08-16] MEDS: PANTOPRAZOLE SODIUM 40 MG TABLET.DR PO SCH (06:01)
[2018-08-16] MEDS: BLOOD SUGAR DIAGNOSTIC 1 EACH STRIP VI SCH ×4 (06:32→20:27)
[2018-08-16] MEDS: ACETAMINOPHEN 325 MG TABLET PO PRN ×2 (08:27→13:09)
[2018-08-16] MEDS: FERROUS SULFATE 325 MG TABEC PO SCH (08:27)
[2018-08-16] MEDS: METFORMIN HCL 500 MG TABLET PO SCH (08:28)
[2018-08-16] MEDS: VALSARTAN 160 MG TABLET PO SCH ×2 (08:29→20:28)
[2018-08-16] MEDS: AMLODIPINE 5 MG TABLET PO SCH ×2 (08:29→20:28)
[2018-08-16] MEDS: APIXABAN 5 MG PO SCH ×2 (08:30→16:36)
[2018-08-16 11:40] VITALS: BP 137/56
[2018-08-16] MEDS: CEPHALEXIN MONOHYDRATE 500 MG CAPSULE PO SCH ×2 (11:46→20:28)
[2018-08-16 15:34] VITALS: BP 151/66
[2018-08-16] MEDS: INSULIN REGULAR, HUMAN 300 UNIT/3 ML VIAL SQ PRN (16:35)
[2018-08-16] MEDS: CYCLOBENZAPRINE HCL 10 MG TABLET PO PRN (16:40)
[2018-08-16] MEDS: ALBUTEROL SULFATE 1.25 MG/3 ML NEBU NEB PRN ×2 (16:52→20:01)
[2018-08-16] MEDS: IPRATROPIUM BROMIDE 0.5 MG/2.5 ML NEBU NEB PRN ×2 (16:52→20:01)
[2018-08-16 19:42] VITALS: BP 165/58
[2018-08-16] MEDS: DOCUSATE SODIUM 100 MG CAPSULE PO SCH (20:29)
[2018-08-16] MEDS: hydrALAZINE HCL 50 MG TABLET PO PRN (23:41)
[2018-08-17] VITALS: BP 169/58
[2018-08-17 04:00] VITALS: BP 142/52
[2018-08-17 06:29] LABS: ALANINE AMINOTRANSFERASE 26 U/L (14-59); ALKALINE PHOSPHATASE 93 U/L (50-136); ASPARTATE AMINOTRANSFERASE 19 U/L (15-37); BILIRUBIN,TOTAL 0.4 mg/dL (0.2-1.0); CARBON DIOXIDE 27 mmol/L (21-32); CHLORIDE 103 mmol/L (98-107); GLUCOSE 106 mg/dL (74-106); MAGNESIUM 1.9 mg/dL (1.8-2.4); PHOSPHOROUS 3.6 mg/dL (2.5-4.9); TOTAL PROTEIN, SERUM 7.4 g/dL (6.4-8.2); UREA NITROGEN, BLOOD 19 mg/dL (7-18)
[2018-08-17] MEDS: PANTOPRAZOLE SODIUM 40 MG TABLET.DR PO SCH (06:42)
[2018-08-17] MEDS: BLOOD SUGAR DIAGNOSTIC 1 EACH STRIP VI SCH ×4 (06:45→20:24)
[2018-08-17 06:49] LABS: BASOPHILS # (AUTO) 0.1 K/uL (0.0-8.0); EOSINOPHILS # (AUTO) 0.1 K/uL (0.0-0.7); HEMATOCRIT 33.1 % (31.2-41.9); HEMOGLOBIN 10.9 g/dL (10.9-14.3); LYMPHOCYTES # (AUTO) 1.4 K/uL (20.0-40.0); LYMPHOCYTES % (AUTO) 19.9 % (20.5-51.5); MEAN CORPUSCULAR HEMOGLOBIN 24.7 uug (24.7-32.8); MEAN CORPUSCULAR HGB CONC 33 g/dL (32.3-35.6); MEAN CORPUSCULAR VOLUME 74.6 fL (75.5-95.3); MONOCYTES # (AUTO) 0.7 K/uL (2.0-10.0); MONOCYTES % (AUTO) 10.1 % (0.0-11.0); NEUTROPHILS # (AUTO) 4.9 K/uL (1.8-8.9); PLATELET COUNT (AUTO) 204 K/uL (179-408); RED BLOOD CELL COUNT(AUTO) 4.43 MIL/uL (3.63-4.92)
[2018-08-17 07:03] LABS: WHITE BLOOD COUNT (AUTO) 7.3 K/uL (3.8-11.8)
[2018-08-17 08:37] LABS: BASOPHILS % (MANUAL) 2 % (0-2); EOSINOPHILS % (MANUAL) 1 % (0-8); LYMPHOCYTES % (MANUAL) 20 % (20-40); MONOCYTES % (MANUAL) 12 % (2-10); NEUTROPHILS % (MANUAL) 65 % (42-75)
[2018-08-17] MEDS: METFORMIN HCL 500 MG TABLET PO SCH (08:54)
[2018-08-17] MEDS: CEPHALEXIN MONOHYDRATE 500 MG CAPSULE PO SCH ×2 (08:55→20:22)
[2018-08-17] MEDS: CYCLOBENZAPRINE HCL 10 MG TABLET PO PRN ×2 (08:55→20:25)
[2018-08-17] MEDS: FERROUS SULFATE 325 MG TABEC PO SCH (08:55)
[2018-08-17] MEDS: APIXABAN 5 MG PO SCH ×2 (08:57→16:01)
[2018-08-17] MEDS: VALSARTAN 160 MG TABLET PO SCH ×2 (09:00→20:24)
[2018-08-17] MEDS: hydrALAZINE HCL 50 MG TABLET PO SCH ×2 (09:00→20:24)
[2018-08-17] MEDS: AMLODIPINE 5 MG TABLET PO SCH ×2 (09:01→20:24)
[2018-08-17] MEDS: FUROSEMIDE 20 MG TABLET PO SCH (09:04)
[2018-08-17 11:40] VITALS: BP 148/52
[2018-08-17] MEDS: INSULIN REGULAR, HUMAN 300 UNIT/3 ML VIAL SQ PRN (12:44)
[2018-08-17 15:47] VITALS: BP 120/48
[2018-08-17] MEDS: IPRATROPIUM BROMIDE 0.5 MG/2.5 ML NEBU NEB PRN (16:13)
[2018-08-17] MEDS: ALBUTEROL SULFATE 1.25 MG/3 ML NEBU NEB PRN (16:13)
[2018-08-17 19:52] VITALS: BP 137/47
[2018-08-17] MEDS: DOCUSATE SODIUM 100 MG CAPSULE PO SCH (20:23)
[2018-08-18] VITALS: BP 136/47
[2018-08-18 04:00] VITALS: BP 145/50
[2018-08-18] MEDS: PANTOPRAZOLE SODIUM 40 MG TABLET.DR PO SCH (06:22)
[2018-08-18] MEDS: BLOOD SUGAR DIAGNOSTIC 1 EACH STRIP VI SCH ×4 (06:25→20:38)
[2018-08-18 06:40] LABS: BASOPHILS # (AUTO) 0.1 K/uL (0.0-8.0); EOSINOPHILS # (AUTO) 0.2 K/uL (0.0-0.7); EOSINOPHILS % (AUTO) 2.2 % (0.0-7.0); HEMATOCRIT 32.7 % (31.2-41.9); HEMOGLOBIN 10.6 g/dL (10.9-14.3); LYMPHOCYTES # (AUTO) 1.1 K/uL (20.0-40.0); LYMPHOCYTES % (AUTO) 15.9 % (20.5-51.5); MEAN CORPUSCULAR HEMOGLOBIN 24.3 uug (24.7-32.8); MEAN CORPUSCULAR HGB CONC 32 g/dL (32.3-35.6); MONOCYTES # (AUTO) 0.7 K/uL (2.0-10.0); MONOCYTES % (AUTO) 9.7 % (0.0-11.0); NEUTROPHILS # (AUTO) 5.1 K/uL (1.8-8.9); NEUTROPHILS % (AUTO) 71.2 % (38.5-71.5); PLATELET COUNT (AUTO) 199 K/uL (179-408); RED BLOOD CELL COUNT(AUTO) 4.36 MIL/uL (3.63-4.92); WHITE BLOOD COUNT (AUTO) 7.1 K/uL (3.8-11.8)
[2018-08-18 07:00] LABS: CARBON DIOXIDE 30 mmol/L (21-32); CHLORIDE 102 mmol/L (98-107); CREATININE 0.9 mg/dL (0.6-1.3); GLUCOSE 109 mg/dL (74-106); MAGNESIUM 1.8 mg/dL (1.8-2.4); PHOSPHOROUS 3.7 mg/dL (2.5-4.9); POTASSIUM 3.9 mmol/L (3.5-5.1); UREA NITROGEN, BLOOD 17 mg/dL (7-18)
[2018-08-18] MEDS: FERROUS SULFATE 325 MG TABEC PO SCH (08:44)
[2018-08-18] MEDS: FUROSEMIDE 20 MG TABLET PO SCH (08:44)
[2018-08-18] MEDS: METFORMIN HCL 500 MG TABLET PO SCH (08:44)
[2018-08-18] MEDS: CEPHALEXIN MONOHYDRATE 500 MG CAPSULE PO SCH ×2 (08:44→20:31)
[2018-08-18] MEDS: hydrALAZINE HCL 50 MG TABLET PO SCH ×2 (08:45→20:29)
[2018-08-18] MEDS: VALSARTAN 160 MG TABLET PO SCH ×2 (08:46→20:29)
[2018-08-18] MEDS: AMLODIPINE 5 MG TABLET PO SCH ×2 (08:46→20:30)
[2018-08-18] MEDS: APIXABAN 5 MG PO SCH ×2 (08:47→16:36)
[2018-08-18] MEDS: ACETAMINOPHEN 325 MG TABLET PO PRN (08:54)
[2018-08-18 09:49] LABS: ABG BASE EXCESS 3.5 mmol/L; ABG HCO3 28.8 mmol/L; ABG PCO2 46.9 mmHg (35.0-45.0); ABG PH 7.406 (7.350-7.450); ABG PO2 64.8 mmHg (75.0-100.0); ABG SITE RIGHT RADIAL; ABG TOTAL HEMOGLOBIN 11.8 G/dL (12.0-16.0); COHb 1.5 % (0.5-1.5); MetHb 0.1 % (0.0-1.5); O2Hb 90.4 % (94.0-97.0); VENT MODE ROOM AIR
[2018-08-18 12:06] VITALS: BP 138/46
[2018-08-18] MEDS: INSULIN REGULAR, HUMAN 300 UNIT/3 ML VIAL SQ PRN ×2 (12:24→20:45)
[2018-08-18] MEDS ORDERED: POTASSIUM CHLORIDE 20 MEQ TAB.PRT.SR PO ONE (13:00)
[2018-08-18] MEDS ORDERED: ACETAzolamide SODIUM 500 MG VIAL IV SCH (13:00)
[2018-08-18 15:47] VITALS: BP 129/41
[2018-08-18] MEDS: MAGNESIUM SULFATE/D5W 100 ML IV SCH ×2 (16:44→17:33)
[2018-08-18] MEDS ORDERED: CEPH500C2 PO (18:35)
[2018-08-18] MEDS ORDERED: VALS160T2 PO (18:35)
[2018-08-18] MEDS ORDERED: HYDR50TA68 PO (18:35)
[2018-08-18] MEDS ORDERED: AMLO5TAB7 PO (18:35)
[2018-08-18 20:00] VITALS: BP 125/55
[2018-08-18] MEDS: DOCUSATE SODIUM 100 MG CAPSULE PO SCH (20:27)
[2018-08-18 20:30] VITALS: BP 134/40
== END 2018-08-18 21:56 | DRG 291 ==
LOC: ER 19:02 → TELE 21:18 → MED 08-18 14:35
PROVIDERS: ADMIT Internal Medicine; ATTEND Nurse Practitioner Acute Care
DX: I11.0 Hypertensive heart disease with heart failure (principal); J96.01 Acute respiratory failure with hypoxia; N39.0 Urinary tract infection, site not specified; K86.1 Other chronic pancreatitis; I50.33 Acute on chronic diastolic (congestive) heart failure; F41.0 Panic disorder [episodic paroxysmal anxiety]; I48.2 Chronic atrial fibrillation; Z79.01 Long term (current) use of anticoagulants; J84.10 Pulmonary fibrosis, unspecified; D50.9 Iron deficiency anemia, unspecified; Z86.73 Personal history of transient ischemic attack (TIA), and cerebral infarction without residual deficits; Z90.49 Acquired absence of other specified parts of digestive tract; I25.2 Old myocardial infarction; I25.10 Atherosclerotic heart disease of native coronary artery without angina pectoris; Z95.5 Presence of coronary angioplasty implant and graft; Z90.710 Acquired absence of both cervix and uterus; Z82.49 Family history of ischemic heart disease and other diseases of the circulatory system; K57.30 Diverticulosis of large intestine without perforation or abscess without bleeding; G89.29 Other chronic pain; Z87.01 Personal history of pneumonia (recurrent); E83.51 Hypocalcemia; E11.65 Type 2 diabetes mellitus with hyperglycemia; Z98.49 Cataract extraction status, unspecified eye; E02 Subclinical iodine-deficiency hypothyroidism; E87.6 Hypokalemia; E11.40 Type 2 diabetes mellitus with diabetic neuropathy, unspecified; E78.5 Hyperlipidemia, unspecified; M54.30 Sciatica, unspecified side; J98.4 Other disorders of lung; M81.0 Age-related osteoporosis without current pathological fracture; M48.00 Spinal stenosis, site unspecified; I51.89 Other ill-defined heart diseases; Z79.84 Long term (current) use of oral hypoglycemic drugs
CPT/HCPCS: 36415; 36600; 70030-TC; 71045; 82378; 83550; 83605; 83735; 84100; 84443; 85025; 85610; 87040; 87086; 93005; 94640; 94664; 97110; 97116; 97530; A4663; G0378; J0696; J1120; J1940; J2916; J3475; J3490; J3590; J7050; J7060

== ENCOUNTER 2018-08-18 22:58 | Inpatient (IN) | payer MEDICARE, OTHER ==
[~2018-08-18] VITALS: Ht 152.4 cm; Wt 65.8 kg
--- NOTE | 2018-08-18 21:30 | NUR ---
Admitted is a 87y/o female from the Med-Surg unit on the second floor with Diagnosis of Acute Diastolic Heart Failure. Wheeled down to ARU with RN from second floor. Patient is alert and verbally responsive. Surinamese speaking, but does understand and speak some Slovenian. Able to make needs known. Denies any pain and discomfort. No acute distress. NO SOB. On O2 @ 2L via NC. On PO Keflex for UTI. Noted with Edema on lower extremities. Bruising on arms. IV site on right shoulder. Patent and intact. Kept clean and dry. All needs attended to promptly. Call light within reach. Will continue to monitor. Dr. Julian made aware of new admission and Med-recon. Dr. Eller made aware of new admission.
[2018-08-18 22:00] VITALS: BP 134/54
[~2018-08-18 22:58] MED LIST changes: +AMLO5TAB7 PO; +CEPH500C2 PO; +HYDR50TA68 PO; +VALS160T2 PO
[2018-08-18] MEDS ORDERED: Z GUARD REMEDY PASTE 57 GM TUBE TOP PRN (23:15)
[2018-08-19] MEDS: ACETAMINOPHEN 325 MG TABLET PO PRN ×3 (00:01→21:20)
[2018-08-19] MEDS ORDERED: DEXTROSE 50% 50 ML DISP.SYRIN IV PRN (08:00)
[2018-08-19 08:02] VITALS: BP 109/42
[2018-08-19] MEDS: VALSARTAN 160 MG TABLET PO SCH ×2 (11:30→22:10)
[2018-08-19] MEDS: hydrALAZINE HCL 50 MG TABLET PO SCH ×2 (11:30→21:19)
[2018-08-19] MEDS: FERROUS SULFATE 325 MG TABEC PO SCH (11:34)
[2018-08-19] MEDS: CEPHALEXIN MONOHYDRATE 500 MG CAPSULE PO SCH ×2 (11:35→21:18)
[2018-08-19] MEDS: METFORMIN HCL 500 MG TABLET PO SCH (11:35)
[2018-08-19] MEDS: APIXABAN 5 MG TABLET**PATIENT'S OWN MED PO SCH ×2 (11:36→17:28)
[2018-08-19] MEDS: BLOOD SUGAR DIAGNOSTIC 1 EACH STRIP VI SCH ×3 (11:40→21:25)
[2018-08-19 15:55] VITALS: BP 137/53
[2018-08-19] MEDS ORDERED: Medication Not On Formulary EA (Olmesartan Medoxomil (Benicar) 20 MG) PO SCH (17:00)
--- NOTE | 2018-08-19 19:40 | NUR ---
RECEIVED IN BED, AWAKE, VERBALLY RESPONSIVE, NO COMPLAIN OF PAIN NOTED AT THIS TIME, CONTINUE ON OXYGEN THERAPY AT 2LPM NC, TOLERATE WELL, NO S/S OF DISATURATION NOTED. WITH ON AND OFF MOIST COUGH. CONT TO MONITOR.
[2018-08-19 20:57] VITALS: BP 131/57
[2018-08-19] MEDS: DOCUSATE SODIUM 100 MG CAPSULE PO SCH (21:18)
[2018-08-19] MEDS: AMLODIPINE 5 MG TABLET PO SCH (21:19)
[2018-08-19] MEDS ORDERED: ALBUTEROL SULFATE 2.5 MG/ 0.5 ML NEBU NEB PRN (21:45)
--- NOTE | 2018-08-19 21:45 | NUR ---
PATIENT HAS MOIST COUGH, AND WANTING SOME COUGH MEDICATIONS, MD NOTIFIED WITH NEW ORDER. WILL CONTINUE TO MONITOR.
--- NOTE | 2018-08-20 05:59 | NUR ---
PATIENT SLEPT MOST OF THE NIGHT, NO FURTHER EPISODES OF COUGH AND CONGESTION, MEDICATED WITH TYLENOL FOR MILD DISCOMFORT, CONT ON OXYGEN 2LP, OXYGEN SAT WNL. NO S/S OF HYPO/HYPERGYLCEMIA NOTED. KEPT CLEAN DRY AND COMFORTABLE.
[2018-08-20] MEDS: BLOOD SUGAR DIAGNOSTIC 1 EACH STRIP VI SCH ×4 (06:15→20:10)
--- NOTE | 2018-08-20 07:30 | NUR ---
AWAKE , ALERT. DENIES ANY DISCOMFORT. MADE COMFORTABLE
[2018-08-20 08:40] VITALS: BP 128/37
[2018-08-20] MEDS: VALSARTAN 160 MG TABLET PO SCH ×2 (09:00→20:12)
[2018-08-20] MEDS: hydrALAZINE HCL 50 MG TABLET PO SCH ×2 (09:00→20:11)
[2018-08-20] MEDS: AMLODIPINE 5 MG TABLET PO SCH ×2 (09:00→20:11)
--- NOTE | 2018-08-20 09:00 | NUR ---
PATIENT IN PT, WILL GIVE MEDS LATER
[2018-08-20] MEDS: METFORMIN HCL 500 MG TABLET PO SCH (09:50)
[2018-08-20] MEDS: CEPHALEXIN MONOHYDRATE 500 MG CAPSULE PO SCH (09:50)
[2018-08-20] MEDS: FERROUS SULFATE 325 MG TABEC PO SCH (09:51)
[2018-08-20] MEDS: APIXABAN 5 MG TABLET**PATIENT'S OWN MED PO SCH ×2 (09:54→16:38)
--- NOTE | 2018-08-20 10:15 | NUR ---
daughter claus in , saw patient, appreciative of care. aware. fed patient with apple pie, made aware patient blood sugar check ac and hs. verbalized understanding, will notify nurse for any other food intake.
[2018-08-20] MEDS: INSULIN REGULAR, HUMAN 300 UNIT/3 ML VIAL SQ PRN (12:13)
--- NOTE | 2018-08-20 13:30 | NUR ---
back from PT. returned to bed as requested.
[2018-08-20] MEDS: ACETAMINOPHEN 325 MG TABLET PO PRN (15:17)
--- NOTE | 2018-08-20 15:30 | NUR ---
called [facility] for Eliquis med needed , will bring tomorrow.
[2018-08-20 16:06] VITALS: BP 158/59
--- NOTE | 2018-08-20 16:30 | NUR ---
relief from tylenol verbalized, less discomfort with muscle pain upper left chest
--- NOTE | 2018-08-20 18:33 | NUR ---
up chair as requested after pericare done.
--- NOTE | 2018-08-20 19:00 | NUR ---
Received patient sitting up in chair. Alert and verbally responsive. Able to make needs known. Bengali speaking, but understands some argentine. Denies any pain and discomfort. No acute distress. No SOB. IV site on left arm. Patent and intact. Kept clean and dry. All needs attended to promptly. Call light within reach. Will continue to monitor.
[2018-08-20 19:30] VITALS: BP 175/52
[2018-08-20] MEDS: DOCUSATE SODIUM 100 MG CAPSULE PO SCH (20:11)
[2018-08-20 21:15] VITALS: BP 158/63
[2018-08-20] MEDS: GUAIFENESIN/DEXTROMETHORPHAN 5 ML UDC PO PRN (23:02)
[2018-08-21 04:00] VITALS: BP 136/46
[2018-08-21] MEDS: BLOOD SUGAR DIAGNOSTIC 1 EACH STRIP VI SCH ×4 (06:35→20:42)
[2018-08-21] MEDS: hydrALAZINE HCL 50 MG TABLET PO SCH ×2 (08:28→20:38)
[2018-08-21] MEDS: VALSARTAN 160 MG TABLET PO SCH ×2 (08:28→20:39)
[2018-08-21] MEDS: AMLODIPINE 5 MG TABLET PO SCH ×2 (08:28→20:39)
[2018-08-21] MEDS: FERROUS SULFATE 325 MG TABEC PO SCH (08:28)
[2018-08-21] MEDS: GUAIFENESIN/DEXTROMETHORPHAN 5 ML UDC PO PRN (08:29)
[2018-08-21] MEDS: METFORMIN HCL 500 MG TABLET PO SCH (08:29)
[2018-08-21] MEDS: APIXABAN 5 MG TABLET**PATIENT'S OWN MED PO SCH ×2 (08:30→16:22)
[2018-08-21 08:50] VITALS: BP 151/59
--- NOTE | 2018-08-21 09:55 | NUR ---
Received pt. in bed comfortable. A/OX4 verbally responsive and able to make her needs known. Pt. still c/o moist intermittent coughing, PRN Robitussin DM given as ordered. Denies CP or SOB at this time. No c/o pain or discomfort. All due AM medications given as ordered and tolerated well. All pt. needs attended and met promptly. Safety measure and fall precaution in placed. Call light and all frequently used items within pt. reach. Will monitor pt. accordingly.
--- NOTE | 2018-08-21 13:13 | NUR ---
INTERDISCIPLINARY TEAM CONFERENCE
[2018-08-21] MEDS: ACETAMINOPHEN 325 MG TABLET PO PRN (13:31)
--- NOTE | 2018-08-21 13:32 | NUR ---
Patient complained of pain 5 out of 10. Afebrile. Medicated with Tylenol for pain PRN as ordered. will continue to monitor
[2018-08-21 16:18] VITALS: BP 133/53
--- NOTE | 2018-08-21 17:42 | NUR ---
EOS NOTE: No significant change during this shift. All pt. need attended and met. All due medications given as ordered. No c/o SOB or CP. Pt. participated with PT/OT, tolerated well. Kept pt. clean and dry throughout this shift. Skin care rendered. No episodes of coughing. Denies dysuria, pt s/p PO ATB for UTI with no sx. Pt. family seen at bedside for support. Safety measures in place. Call light and all frequently used items in reach. Will endorse to oncoming shift.
[2018-08-21] MEDS: INSULIN REGULAR, HUMAN 300 UNIT/3 ML VIAL SQ PRN (18:30)
--- NOTE | 2018-08-21 19:05 | NUR ---
Received patient awake, sitting at the edge of bed. Denies any pain/discomforts at this time. No s/s respiratory distress noted. Tolerating O2 at 2L via NC. saturating 99% at this time. Safety measure and afll precaution maintained. Continue care as planned.
[2018-08-21 19:30] VITALS: BP 139/54
[2018-08-21] MEDS: DOCUSATE SODIUM 100 MG CAPSULE PO SCH (20:38)
[2018-08-22 04:00] VITALS: BP 101/54
--- NOTE | 2018-08-22 06:17 | NUR ---
Shift End Report: VS stable. No complaint presented. Slept well. All needs attended and met. No significant event reported all night. Continue current plan of care.
[2018-08-22] MEDS: BLOOD SUGAR DIAGNOSTIC 1 EACH STRIP VI SCH ×4 (06:30→20:23)
[2018-08-22 07:19] LABS: BASOPHILS # (AUTO) 0.1 K/uL (0.0-8.0); BASOPHILS % (AUTO) 1.2 % (0.0-2.0); EOSINOPHILS # (AUTO) 0.2 K/uL (0.0-0.7); EOSINOPHILS % (AUTO) 2.7 % (0.0-7.0); HEMATOCRIT 34.7 % (31.2-41.9); HEMOGLOBIN 11.2 g/dL (10.9-14.3); LYMPHOCYTES # (AUTO) 1.4 K/uL (20.0-40.0); MEAN CORPUSCULAR HEMOGLOBIN 23.9 uug (24.7-32.8); MEAN CORPUSCULAR HGB CONC 32 g/dL (32.3-35.6); MEAN CORPUSCULAR VOLUME 74.3 fL (75.5-95.3); MONOCYTES # (AUTO) 0.7 K/uL (2.0-10.0); MONOCYTES % (AUTO) 10.3 % (0.0-11.0); NEUTROPHILS # (AUTO) 4.6 K/uL (1.8-8.9); NEUTROPHILS % (AUTO) 65.8 % (38.5-71.5); PLATELET COUNT (AUTO) 225 K/uL (179-408); RED BLOOD CELL COUNT(AUTO) 4.67 MIL/uL (3.63-4.92); WHITE BLOOD COUNT (AUTO) 6.9 K/uL (3.8-11.8)
[2018-08-22 07:28] LABS: CARBON DIOXIDE 24 mmol/L (21-32); CHLORIDE 104 mmol/L (98-107); CREATININE 0.8 mg/dL (0.6-1.3); GLUCOSE 104 mg/dL (74-106); MAGNESIUM 1.8 mg/dL (1.8-2.4); PHOSPHOROUS 4.1 mg/dL (2.5-4.9); POTASSIUM 4.1 mmol/L (3.5-5.1); UREA NITROGEN, BLOOD 25 mg/dL (7-18)
[2018-08-22 08:02] VITALS: BP 135/44
[2018-08-22] MEDS: VALSARTAN 160 MG TABLET PO SCH ×2 (08:46→20:22)
[2018-08-22] MEDS: METFORMIN HCL 500 MG TABLET PO SCH (08:46)
[2018-08-22] MEDS: AMLODIPINE 5 MG TABLET PO SCH ×2 (08:46→20:21)
[2018-08-22] MEDS: hydrALAZINE HCL 50 MG TABLET PO SCH ×2 (08:47→20:21)
[2018-08-22] MEDS: FERROUS SULFATE 325 MG TABEC PO SCH (08:47)
[2018-08-22] MEDS: APIXABAN 5 MG TABLET**PATIENT'S OWN MED PO SCH ×2 (08:49→17:03)
--- NOTE | 2018-08-22 09:06 | NUR ---
SBAR report received, board updated. Pt VSS. Pt received resting in bed, assessed, no acute distress, SOB, or pain noted. Pt compliant with all routinely scheduled medication administration. Plan for today discussed, including shower request. All safety and comfort measures in place. Bed in locked and lowest position with side rails up x2. Call light placed within reach. Will continue to monitor.
[2018-08-22 16:24] VITALS: BP 146/59
--- NOTE | 2018-08-22 19:05 | NUR ---
Awake, in bed, very pleasant. Denies any s/s of respiratory distress. Complaint of right leg pain in scale of 6/10. Will administer pain meds as ordered and needed. Safety measure and fall precaution maintained. Continue care as planned.
[2018-08-22 20:20] VITALS: BP 146/44
[2018-08-22] MEDS: DOCUSATE SODIUM 100 MG CAPSULE PO SCH (20:21)
[2018-08-22] MEDS: ACETAMINOPHEN 325 MG TABLET PO PRN (20:51)
--- NOTE | 2018-08-22 20:51 | NUR ---
Tylenol gr 10 given as ordered and needed for right leg pain. Will monitor.
--- NOTE | 2018-08-23 03:15 | NUR ---
Patient presented complaint of upset stomach. Hot tea and aida crackers (per pt's request) offered and provided. Will monitor therapeutic effect. Encouraged patient turning from side to side if able..
[2018-08-23 04:00] VITALS: BP 147/65
--- NOTE | 2018-08-23 05:34 | NUR ---
Shift End Report: Patient expressed relief from upset stomach after drinking hot tea. No s/s of hypo/hyperglycemia. No s/s of hypo/hypertension. No fall/injury. No further complaint of right leg pain presented. All needs attended and met. No significant event reported all night. Continue current rehab plan of care.
[2018-08-23] MEDS: BLOOD SUGAR DIAGNOSTIC 1 EACH STRIP VI SCH ×4 (06:37→20:43)
[2018-08-23 08:02] VITALS: BP 155/62
[2018-08-23] MEDS: FERROUS SULFATE 325 MG TABEC PO SCH (09:29)
[2018-08-23] MEDS: METFORMIN HCL 500 MG TABLET PO SCH (09:31)
[2018-08-23] MEDS: VALSARTAN 160 MG TABLET PO SCH ×2 (09:31→20:40)
[2018-08-23] MEDS: hydrALAZINE HCL 50 MG TABLET PO SCH ×2 (09:31→20:40)
[2018-08-23] MEDS: AMLODIPINE 5 MG TABLET PO SCH ×2 (09:32→20:41)
[2018-08-23] MEDS: APIXABAN 5 MG TABLET**PATIENT'S OWN MED PO SCH ×2 (09:34→16:35)
[2018-08-23 16:09] VITALS: BP 144/46
--- NOTE | 2018-08-23 17:05 | NUR ---
Shift End Report: Patient seen upon rounds AAOX4, No s/s of hypo/hyperglycemia. No s/s of hypo/hypertension. No fall/injury. Denies pain at this time, able to participate with skilled therapy PT/OT. All needs attended and met. No significant event reported all day. Continue current rehab plan of care.
--- NOTE | 2018-08-23 19:10 | NUR ---
Up in a chair during initial rounds. Denies any pain/discomforts at this time. Safety measure and fall precaution maintained. Continue care as planned.
[2018-08-23 20:32] VITALS: BP 143/60
[2018-08-23] MEDS: DOCUSATE SODIUM 100 MG CAPSULE PO SCH (20:40)
--- NOTE | 2018-08-23 20:40 | NUR ---
Assisted back to bed. Made comfortable.
[2018-08-24 05:00] VITALS: BP 133/49
[2018-08-24 05:58] LABS: ABG BASE EXCESS 2.3 mmol/L; ABG HCO3 26.5 mmol/L; ABG PCO2 39.8 mmHg (35.0-45.0); ABG PH 7.441 (7.350-7.450); ABG PO2 85.2 mmHg (75.0-100.0); ABG SITE RIGHT RADIAL; ABG TOTAL HEMOGLOBIN 12.6 G/dL (12.0-16.0); COHb 1.7 % (0.5-1.5); MetHb 0.1 % (0.0-1.5); O2Hb 95.4 % (94.0-97.0); VENT MODE ROOM AIR
--- NOTE | 2018-08-24 06:13 | NUR ---
Shift End Report: Slept well. No fall/injury. No s/s of hypo/hypertension. No s/s hypo/hyperglycemia. All needs attended and met. No significant event reported all night. Continue current rehab plan of care.
[2018-08-24] MEDS: BLOOD SUGAR DIAGNOSTIC 1 EACH STRIP VI SCH ×4 (06:42→20:41)
[2018-08-24 07:45] VITALS: BP 133/58
--- NOTE | 2018-08-24 07:48 | NUR ---
Received pt. in bed comfortable. A/OX4 verbally responsive and able to make her needs known. Denies CP or SOB at this time. No c/o coughing. No c/o pain or discomfort. Dr. Massey ([facility]) on-site, relayed ABG results to MD with no new order. All pt. needs attended and met promptly. Safety measure and fall precaution in placed. Call light and all frequently used items within pt. reach. Will monitor pt. accordingly.
[2018-08-24] MEDS: METFORMIN HCL 500 MG TABLET PO SCH (08:11)
[2018-08-24] MEDS: FERROUS SULFATE 325 MG TABEC PO SCH (08:11)
[2018-08-24] MEDS: VALSARTAN 160 MG TABLET PO SCH ×2 (08:11→20:36)
[2018-08-24] MEDS: AMLODIPINE 5 MG TABLET PO SCH ×2 (08:12→20:36)
[2018-08-24] MEDS: hydrALAZINE HCL 50 MG TABLET PO SCH ×2 (08:12→20:35)
[2018-08-24] MEDS: APIXABAN 5 MG TABLET**PATIENT'S OWN MED PO SCH ×2 (08:18→17:15)
--- NOTE | 2018-08-24 11:37 | NUR ---
LFA PIV d/c 2/2 IV infiltration. Pt. tolerated procedure well. No active bleeding noted.
[2018-08-24 15:59] VITALS: BP 146/70
[2018-08-24] MEDS: INSULIN REGULAR, HUMAN 300 UNIT/3 ML VIAL SQ PRN (17:16)
--- NOTE | 2018-08-24 18:13 | NUR ---
EOS NOTE: No significant change during this shift. All pt. need attended and met. All due medications given as ordered. No c/o SOB or CP. No s/sx of hypo/hyperglycemia. Kept pt. clean and dry throughout this shift. Skin care rendered. Pt. family visited pt. today. Safety measures in place. Call light and all frequently used items in reach. Will endorse to oncoming shift.
[2018-08-24 20:05] VITALS: BP 156/62
[2018-08-24] MEDS: DOCUSATE SODIUM 100 MG CAPSULE PO SCH (20:35)
--- NOTE | 2018-08-25 04:41 | NUR ---
aaox4 wooten's ambulates to the BR. Voiding well. Will monitor patient. admitted for CHF. VSS. Denies any pain nor any discomfort. Continent of bowel and bladder. No acute distress noted.
[2018-08-25] MEDS: BLOOD SUGAR DIAGNOSTIC 1 EACH STRIP VI SCH ×4 (06:33→20:46)
[2018-08-25 06:56] VITALS: BP 119/52
[2018-08-25 07:48] VITALS: BP 132/60
--- NOTE | 2018-08-25 08:04 | NUR ---
SBAR received from previous shift, uneventful night. Received pt. in bed, A/OX4 and verbally responsive, able to make her needs known. Andie CP or SOB. No c/o pain at this time. No s/sx of hypo/hyperglycemia, last BS 123. All pt. needs attended promptly and met. Safety measure in place. Call light and all frequently used items within pt. reach.
[2018-08-25] MEDS: FERROUS SULFATE 325 MG TABEC PO SCH (08:29)
[2018-08-25] MEDS: hydrALAZINE HCL 50 MG TABLET PO SCH ×2 (08:29→20:40)
[2018-08-25] MEDS: METFORMIN HCL 500 MG TABLET PO SCH (08:30)
[2018-08-25] MEDS: AMLODIPINE 5 MG TABLET PO SCH ×2 (08:30→20:40)
[2018-08-25] MEDS: VALSARTAN 160 MG TABLET PO SCH ×2 (08:30→20:39)
[2018-08-25] MEDS: APIXABAN 5 MG TABLET**PATIENT'S OWN MED PO SCH ×2 (08:32→17:21)
[2018-08-25] MEDS: INSULIN REGULAR, HUMAN 300 UNIT/3 ML VIAL SQ PRN ×2 (11:15→17:21)
[2018-08-25 16:18] VITALS: BP 151/61
--- NOTE | 2018-08-25 18:30 | NUR ---
EOS NOTE: No significant change during this shift. All pt. need attended and met. All due medications given as ordered. No c/o SOB or CP. No s/sx of hypo/hyperglycemia. Kept pt. clean and dry throughout this shift. Skin care rendered. Ambulates by herself steadily with no device or assistance, cleared by PT. Pt. eager to discharge home. Safety measures in place. Call light and all frequently used items in reach. Will endorse to oncoming shift.
[2018-08-25] MEDS: DOCUSATE SODIUM 100 MG CAPSULE PO SCH (20:39)
[2018-08-25] MEDS: ACETAMINOPHEN 325 MG TABLET PO PRN (20:40)
[2018-08-25 21:29] VITALS: BP 122/59
--- NOTE | 2018-08-26 04:39 | NUR ---
condition unchanged. aaox4 no acute distress noted. ambulates to the BR with supervision. voiding well. slept most of the shift. denies any pain nor any discomfort. VSS siderails up for safety.
[2018-08-26 05:29] VITALS: BP 126/68
[2018-08-26] MEDS: BLOOD SUGAR DIAGNOSTIC 1 EACH STRIP VI SCH ×4 (06:31→20:41)
[2018-08-26 08:01] VITALS: BP 135/52
[2018-08-26] MEDS: hydrALAZINE HCL 50 MG TABLET PO SCH ×2 (09:37→20:34)
[2018-08-26] MEDS: VALSARTAN 160 MG TABLET PO SCH ×2 (09:38→20:35)
[2018-08-26] MEDS: METFORMIN HCL 500 MG TABLET PO SCH (09:38)
[2018-08-26] MEDS: AMLODIPINE 5 MG TABLET PO SCH ×2 (09:38→20:35)
[2018-08-26] MEDS: FERROUS SULFATE 325 MG TABEC PO SCH (09:38)
[2018-08-26] MEDS: APIXABAN 5 MG TABLET**PATIENT'S OWN MED PO SCH ×2 (09:43→16:55)
[2018-08-26 16:00] VITALS: BP 146/62
--- NOTE | 2018-08-26 19:00 | NUR ---
PT'S AWAKE, ALERT AND RESPONSIVE NOT IN RESPIRATORY DISTRESS. ATE MEALS WITH GOOD APPETITE. BLOOD SUGAR IN NORMAL RANGE .AMBULATED WITH PHYSICAL THERAPIST . IN STABLE CONDITION THROUGHOUT THE SHIFT.
[2018-08-26] MEDS: ACETAMINOPHEN 325 MG TABLET PO PRN (20:35)
[2018-08-26] MEDS: DOCUSATE SODIUM 100 MG CAPSULE PO SCH (20:35)
[2018-08-26 22:11] VITALS: BP 150/58
--- NOTE | 2018-08-27 04:10 | NUR ---
aaox4 needs attended. ambulates to the BR with supervision. No acute distress noted. Fall precautions maintained. VSS. Tylenol given for headache. Relief noted. Voiding freely without any difficulty. accucheck @ 2100 110.Needs attended. Will monitor patient.
[2018-08-27 06:04] VITALS: BP 134/68
[2018-08-27] MEDS: BLOOD SUGAR DIAGNOSTIC 1 EACH STRIP VI SCH ×4 (06:30→20:51)
[2018-08-27 07:57] VITALS: BP 136/50
[2018-08-27] MEDS: FERROUS SULFATE 325 MG TABEC PO SCH (08:13)
[2018-08-27] MEDS: METFORMIN HCL 500 MG TABLET PO SCH (08:13)
[2018-08-27] MEDS: hydrALAZINE HCL 50 MG TABLET PO SCH ×2 (08:13→20:33)
[2018-08-27] MEDS: VALSARTAN 160 MG TABLET PO SCH ×2 (08:14→20:32)
[2018-08-27] MEDS: AMLODIPINE 5 MG TABLET PO SCH ×2 (08:14→20:33)
[2018-08-27] MEDS: APIXABAN 5 MG TABLET**PATIENT'S OWN MED PO SCH ×2 (08:15→16:45)
[2018-08-27] MEDS: INSULIN REGULAR, HUMAN 300 UNIT/3 ML VIAL SQ PRN ×2 (08:18→11:31)
--- NOTE | 2018-08-27 09:03 | NUR ---
SBAR received from previous shift, uneventful night. Received pt. in bed, A/OX4 and verbally responsive, able to make her needs known. Andie CP or SOB. No c/o pain at this time. No s/sx of hypo/hyperglycemia, last BS 117. No s/sx of bleeding noted. Pt. is scheduled for discharge on 08/28/18. All pt. needs attended promptly and met. Safety measure in place. Call light and all frequently used items within pt. reach.
[2018-08-27 15:47] VITALS: BP 131/50
--- NOTE | 2018-08-27 18:55 | NUR ---
EOS NOTE: Uneventful shift. All pt. need attended and met. All due medications given as ordered. Denies SOB or CP. Kept pt. clean and dry throughout this shift. Ambulatory by herself with steady gait. Safety measures in place. No s/sx of bleeding noted, on Eliquis. TMS prepared and signed by provider, placed in pt. chart. Call light and all frequently used items in reach. Will endorse to oncoming shift.
--- NOTE | 2018-08-27 19:15 | NUR ---
Awake and alert. Denies any pain/discomforts at this time. Daughter at bedside. Safety measure and fall precaution maintained. Continue care as planned.
[2018-08-27 19:49] VITALS: BP 162/62
[2018-08-27] MEDS: DOCUSATE SODIUM 100 MG CAPSULE PO SCH (20:32)
[2018-08-28 05:47] VITALS: BP 121/57
[2018-08-28] MEDS: BLOOD SUGAR DIAGNOSTIC 1 EACH STRIP VI SCH ×2 (06:23→11:40)
--- NOTE | 2018-08-28 06:34 | NUR ---
Shift End Report: Slept well. No complaint presented. No fall/injury. No s/s of hypo/hyperglycemia. No s/s of hypo/hypertension No significant event reported all night. VS stable. Continue current rehab plan of care.
[2018-08-28] MEDS: FERROUS SULFATE 325 MG TABEC PO SCH (08:21)
[2018-08-28] MEDS: METFORMIN HCL 500 MG TABLET PO SCH (08:21)
[2018-08-28] MEDS: VALSARTAN 160 MG TABLET PO SCH ×2 (08:23→15:50)
[2018-08-28] MEDS: hydrALAZINE HCL 50 MG TABLET PO SCH ×2 (08:24→13:20)
[2018-08-28] MEDS: AMLODIPINE 5 MG TABLET PO SCH ×2 (08:25→15:49)
[2018-08-28] MEDS: APIXABAN 5 MG TABLET**PATIENT'S OWN MED PO SCH (08:27)
[2018-08-28 08:45] VITALS: BP 110/53
--- NOTE | 2018-08-28 09:28 | NUR ---
SBAR report received, Pt resting in bed. VSS BP 110/53, 65, BP 3 medications held, Pt denies dizziness and pain at this time. Pt assessed, no acute distress or SOB noted. Pt compliant with routine morning medications. Plan of care discussed including anticipated discharge between 1-2pm today. All safety and comfort measures implemented. Bed in locked and lowest position with side rails upx2. Call light placed within reach. Will continue to monitor.
[2018-08-28 16:12] VITALS: BP 147/60
--- NOTE | 2018-08-28 17:00 | NUR ---
Discharge orders received. Paperwork completed, Pt educational material discussed, signed, provided to patient and copies placed in chart. Rx reviewed with daughter and Pt, faxed to pharmacy. Home medication returned. Skin integrity intact, BL forearm bruises resolved, photos taken and placed in chart. Belongings accounted for and list signed. Follow up appointment discussed. All discharge concerns addressed at this time. ID band removed. Pt safely transferred on to wheelchair and escorted out of hospital to private car with daughter, Kizzy morales. Will remove Pt from system.
== END 2018-08-28 17:00 | disposition home health service (06) | DRG 292 ==
PROVIDERS: ADMIT Physical Medicine & Rehabilitation Pain Medicine; ATTEND Physical Medicine & Rehabilitation Pain Medicine
DX: I11.0 Hypertensive heart disease with heart failure (principal); N39.0 Urinary tract infection, site not specified; D68.59 Other primary thrombophilia; K86.1 Other chronic pancreatitis; I50.33 Acute on chronic diastolic (congestive) heart failure; D50.9 Iron deficiency anemia, unspecified; E03.9 Hypothyroidism, unspecified; E11.65 Type 2 diabetes mellitus with hyperglycemia; I25.10 Atherosclerotic heart disease of native coronary artery without angina pectoris; I48.2 Chronic atrial fibrillation; J84.10 Pulmonary fibrosis, unspecified; I25.2 Old myocardial infarction; Z95.5 Presence of coronary angioplasty implant and graft; M81.0 Age-related osteoporosis without current pathological fracture; M19.90 Unspecified osteoarthritis, unspecified site; Z86.73 Personal history of transient ischemic attack (TIA), and cerebral infarction without residual deficits; E78.5 Hyperlipidemia, unspecified; R53.1 Weakness; Z88.8 Allergy status to other drugs, medicaments and biological substances; I08.3 Combined rheumatic disorders of mitral, aortic and tricuspid valves; I27.20 Pulmonary hypertension, unspecified; J98.4 Other disorders of lung; K76.0 Fatty (change of) liver, not elsewhere classified; M54.16 Radiculopathy, lumbar region; Z87.01 Personal history of pneumonia (recurrent); Z90.710 Acquired absence of both cervix and uterus; H26.9 Unspecified cataract; Z88.5 Allergy status to narcotic agent; J20.9 Acute bronchitis, unspecified; R07.89 Other chest pain; M54.30 Sciatica, unspecified side
CPT/HCPCS: 36415; 36600; 71045; 83735; 84100; 85025; 92526; 92610; 97110; 97112; 97116; 97530; 97535; J1815

== ENCOUNTER 2019-06-02 14:11 | Inpatient (IN) | payer MEDICARE, OTHER ==
[~2019-06-02] VITALS: Ht 154.9 cm; Wt 61.0 kg
[~2019-06-02 14:11] MED LIST changes: -AMLO5TAB7 PO; +AMLO5TAB9 PO; -FURO20TA4 PO; -VALS160T2 PO
[2019-06-02] MEDS ORDERED: FURO20TA4 PO (14:31)
[2019-06-02] MEDS ORDERED: IV D5W-0.9% NS 1000 ML BAG IV ONE (14:45)
[2019-06-02 15:17] LABS: ABG BASE EXCESS 2.1 mmol/L; ABG HCO3 26.2 mmol/L; ABG PH 7.445 (7.350-7.450); ABG PO2 143.1 mmHg (75.0-100.0); ABG SITE RIGHT RADIAL; ABG TOTAL HEMOGLOBIN 11.4 G/dL (12.0-16.0); COHb 1.3 % (0.5-1.5); MetHb 0.4 % (0.0-1.5); O2Hb 97.5 % (94.0-97.0); VENT MODE Nasal Cannula
[2019-06-02 15:23] LABS: BASOPHILS # (AUTO) 0.1 K/uL (0.0-8.0); BASOPHILS % (AUTO) 1.3 % (0.0-2.0); EOSINOPHILS # (AUTO) 0.1 K/uL (0.0-0.7); EOSINOPHILS % (AUTO) 2.1 % (0.0-7.0); HEMATOCRIT 32.7 % (31.2-41.9); HEMOGLOBIN 10.3 g/dL (10.9-14.3); LYMPHOCYTES # (AUTO) 1.4 K/uL (20.0-40.0); LYMPHOCYTES % (AUTO) 21.9 % (20.5-51.5); MEAN CORPUSCULAR HEMOGLOBIN 19.7 uug (24.7-32.8); MEAN CORPUSCULAR HGB CONC 32 g/dL (32.3-35.6); MEAN CORPUSCULAR VOLUME 62.4 fL (75.5-95.3); MONOCYTES # (AUTO) 0.6 K/uL (2.0-10.0); MONOCYTES % (AUTO) 9.5 % (0.0-11.0); NEUTROPHILS # (AUTO) 4.3 K/uL (1.8-8.9); NEUTROPHILS % (AUTO) 65.2 % (38.5-71.5); PLATELET COUNT (AUTO) 245 K/uL (179-408); RED BLOOD CELL COUNT(AUTO) 5.24 MIL/uL (3.63-4.92); WHITE BLOOD COUNT (AUTO) 6.6 K/uL (3.8-11.8)
--- NOTE | 2019-06-02 15:30 | NUR ---
Job Foreman assumes care. Hands off report received from BRIGIDA Mesa & NIGEL Amaral, pending urine sample & disposition
[2019-06-02 15:31] LABS: CREATININE 0.7 mg/dL (0.6-1.3); POTASSIUM 3.9 mmol/L (3.5-5.1)
--- NOTE | 2019-06-02 15:38 | NUR ---
Dr Hassan is at bedside doing his MSE/physical exam@this time.
[2019-06-02 15:39] LABS: BILIRUBIN,DIRECT 0.2 mg/dL (0.0-0.2); BILIRUBIN,TOTAL 0.6 mg/dL (0.2-1.0)
[2019-06-02] MEDS ORDERED: ASPIRIN 325 MG TABLET PO ONE (15:45)
[2019-06-02] MEDS ORDERED: ALBUTEROL SULFATE 2.5 MG/3 ML NEBU NEB ONE (15:45)
[2019-06-02] MEDS ORDERED: AZITHROMYCIN 250 MG TABLET PO ONE (15:45)
[2019-06-02] MEDS ORDERED: CEFTRIAXONE 1 G in IV DEXTROSE 5% 50 ML IV ONE (15:45)
[2019-06-02] MEDS ORDERED: FUROSEMIDE 20 MG/2 ML VIAL IV ONE (15:45)
[2019-06-02] MEDS ORDERED: NITROGLYCERIN 0.4 MG/TAB BOTTLE SL ONE ×2 (15:45→15:49)
[2019-06-02] MEDS ORDERED: IPRATROPIUM BROMIDE 0.5 MG/2.5 ML NEBU NEB ONE (15:45)
[2019-06-02] MEDS ORDERED: AZITHROMYCIN 250 MG TABLET ONE (15:49)
[2019-06-02] MEDS ORDERED: CEFTRIAXONE 1 G VIAL ONE (15:49)
[2019-06-02] MEDS ORDERED: FUROSEMIDE 40 MG/4 ML VIAL ONE (15:49)
[2019-06-02] MEDS ORDERED: ASPIRIN 325 MG TABLET ONE (15:49)
[2019-06-02] MEDS ORDERED: ALBUTEROL SULFATE 2.5 MG/3 ML NEBU ONE (15:51)
--- NOTE | 2019-06-02 16:58 | NUR ---
DIANA Delaney is at bedside.
[2019-06-02] MEDS ORDERED: NITROGLYCERIN OINT 1 GM PACKET TP ONE ×2 (17:00→17:05)
[2019-06-02] MEDS ORDERED: MAGNESIUM HYDROXIDE 30 ML LIQUID UDC PO PRN (17:30)
[2019-06-02] MEDS ORDERED: DEXTROSE 50% 50 ML DISP.SYRIN IV PRN (17:30)
[2019-06-02] MEDS ORDERED: ONDANSETRON 4 MG/2 ML VIAL IV PRN (17:30)
[2019-06-02] MEDS ORDERED: Z GUARD REMEDY PASTE 57 GM TUBE TOP PRN (17:30)
[2019-06-02] MEDS: methylPREDNISolone SOD SUCC 40 MG/ML VIAL IV SCH (17:52)
[2019-06-02 17:58] LABS: IRON, SERUM 18 ug/dL (50-175)
--- NOTE | 2019-06-02 18:10 | NUR ---
Admitted 88 year old female with diagnosis of CHF/Chest pain to telemetry. Patient is AAOx3. Mainly Macedonian speaking but is able to make needs known. In no acute distress at this time. Receiving 2L o2 via NC. Initial assessment and admission packet completed. Will continue to monitor and endorse plan of care to incoming nurse accordingly.
[2019-06-02 18:12] LABS: FERRITIN 14 ng/mL (8-252)
[2019-06-02] MEDS: APIXABAN 5 MG TABLET PO SCH (19:08)
[2019-06-02 19:11] VITALS: BP 114/50
--- NOTE | 2019-06-02 19:30 | NUR ---
Received patient in bed AAOx3. No SOB noted, noted in distress. On O2 at 2lpm via NC saturating at 98%. Heplock on R FA 18g intact and patent. No complaints of chest pain at this time. Safety measures observed. Call light in reach
[2019-06-02] MEDS: SOD FERRIC GLUC COMPLX/SUCROSE 125 MG in IV NORMAL SALINE 100 ML IV SCH (20:05)
[2019-06-02] MEDS: hydrALAZINE HCL 50 MG TABLET PO SCH (21:27)
[2019-06-02] MEDS: BLOOD SUGAR DIAGNOSTIC 1 EACH STRIP VI SCH (21:29)
[2019-06-02] MEDS: INSULIN REGULAR, HUMAN 300 UNIT/3 ML VIAL SQ PRN (21:56)
[2019-06-02] MEDS: IPRATROPIUM BROMIDE 0.5 MG/2.5 ML NEBU NEB SCH (22:41)
[2019-06-02] MEDS: ALBUTEROL SULFATE 1.25 MG/3 ML NEBU NEB SCH (22:41)
[2019-06-02 22:45] VITALS: BP 131/54
[2019-06-03 00:20] VITALS: BP 138/58
[2019-06-03] MEDS: IPRATROPIUM BROMIDE 0.5 MG/2.5 ML NEBU NEB SCH ×4 (01:30→19:49)
[2019-06-03] MEDS: ALBUTEROL SULFATE 1.25 MG/3 ML NEBU NEB SCH ×4 (01:30→19:49)
[2019-06-03 05:22] VITALS: BP 144/69
--- NOTE | 2019-06-03 06:13 | NUR ---
Patient slept well throughout the night. No SOB noted, not in distress. No complaints of chest pain at this time. Breathing tx given Q6. Controlled A-fib on Tele. All needs attended. Will endorse accordingly.
[2019-06-03 06:27] LABS: BASOPHILS % (AUTO) 0.2 % (0.0-2.0); HEMATOCRIT 33.6 % (31.2-41.9); HEMOGLOBIN 10.5 g/dL (10.9-14.3); LYMPHOCYTES # (AUTO) 0.6 K/uL (20.0-40.0); LYMPHOCYTES % (AUTO) 10.4 % (20.5-51.5); MEAN CORPUSCULAR HEMOGLOBIN 19.7 uug (24.7-32.8); MEAN CORPUSCULAR HGB CONC 31 g/dL (32.3-35.6); MONOCYTES # (AUTO) 0.1 K/uL (2.0-10.0); MONOCYTES % (AUTO) 1.3 % (0.0-11.0); NEUTROPHILS % (AUTO) 88.1 % (38.5-71.5); PLATELET COUNT (AUTO) 250 K/uL (179-408); RED BLOOD CELL COUNT(AUTO) 5.33 MIL/uL (3.63-4.92); WHITE BLOOD COUNT (AUTO) 5.7 K/uL (3.8-11.8)
[2019-06-03] MEDS: BLOOD SUGAR DIAGNOSTIC 1 EACH STRIP VI SCH ×4 (06:32→20:36)
[2019-06-03 06:38] LABS: CARBON DIOXIDE 28 mmol/L (21-32); CHLORIDE 100 mmol/L (98-107); CHOLESTEROL 121 mg/dL (<200); CREATININE 0.7 mg/dL (0.6-1.3); GLUCOSE 158 mg/dL (74-106); HDL CHOLESTEROL 50 mg/dL (40-60); PHOSPHOROUS 4.9 mg/dL (2.5-4.9); TRIGLYCERIDES 51 MG/DL (30-150); UREA NITROGEN, BLOOD 18 mg/dL (7-18)
--- NOTE | 2019-06-03 07:30 | NUR ---
Patient received on bed, no acute distress noted. on tele controlled afib, no complaints of SOB, CP at this time. AAOx4 Occitan speaking but able to make needs known. denies pain. comfort measures provided. call light within reach. will continue to monitor closely.
[2019-06-03 07:41] LABS: THYROID STIMULATING HORMONE 1.004 mIU/mL (0.358-3.740)
[2019-06-03] MEDS: INSULIN REGULAR, HUMAN 300 UNIT/3 ML VIAL SQ PRN ×4 (07:44→20:30)
[2019-06-03] MEDS ORDERED: Medication Not On Formulary EA (Olmesartan Medoxomil (Benicar) 20 MG) PO SCH (09:00)
[2019-06-03] MEDS: FUROSEMIDE 40 MG/4 ML VIAL IV SCH ×2 (09:09→20:19)
[2019-06-03] MEDS: methylPREDNISolone SOD SUCC 40 MG/ML VIAL IV SCH ×3 (09:09→17:10)
[2019-06-03] MEDS: LOSARTAN POTASSIUM 50 MG TABLET PO SCH (09:09)
[2019-06-03] MEDS: hydrALAZINE HCL 50 MG TABLET PO SCH ×2 (09:10→20:19)
[2019-06-03] MEDS: APIXABAN 5 MG TABLET PO SCH (09:19)
[2019-06-03 12:09] VITALS: BP 129/63
[2019-06-03] MEDS: SOD FERRIC GLUC COMPLX/SUCROSE 125 MG in IV NORMAL SALINE 100 ML IV SCH (14:17)
[2019-06-03 15:13] VITALS: BP 134/62
[2019-06-03] MEDS ORDERED: APIXABAN 5 MG TABLET PO SCH (17:00)
[2019-06-03] MEDS: CEFTRIAXONE 1 G in IV DEXTROSE 5% 50 ML IV SCH (17:10)
[2019-06-03] MEDS: AZITHROMYCIN 250 MG TABLET PO SCH (17:11)
--- NOTE | 2019-06-03 19:30 | NUR ---
Received patient awake and alert in bed. A/Ox4. No signs of distress noted. No complaints of SOB or chest pain. Heplock on the left forearm, no s/s of infection. Sinus rhythm on the TELE monitor. Safety measures initiated. Bed is low and locked, call light within reach. Will continue to monitor.
[2019-06-03] MEDS: ACETAMINOPHEN 325 MG TABLET PO PRN (20:32)
[2019-06-04] VITALS: BP 121/52
[2019-06-04] MEDS: ALBUTEROL SULFATE 1.25 MG/3 ML NEBU NEB SCH ×4 (01:30→19:19)
[2019-06-04] MEDS: IPRATROPIUM BROMIDE 0.5 MG/2.5 ML NEBU NEB SCH ×4 (01:30→19:19)
[2019-06-04] MEDS: ACETAMINOPHEN 325 MG TABLET PO PRN (02:35)
[2019-06-04 04:53] VITALS: BP 148/52
--- NOTE | 2019-06-04 06:17 | NUR ---
Patient slept intermittently throughout the shift. No signs of acute distress noted. Complained of sore throat and said that Tylenol was helpful. No complaints of SOB. Heplock on the left forearm is intact and patent. Safety measures given.
[2019-06-04] MEDS: BLOOD SUGAR DIAGNOSTIC 1 EACH STRIP VI SCH ×4 (06:33→21:10)
[2019-06-04 06:46] LABS: CARBON DIOXIDE 29 mmol/L (21-32); CHLORIDE 99 mmol/L (98-107); GLUCOSE 188 mg/dL (74-106); POTASSIUM 3.6 mmol/L (3.5-5.1); UREA NITROGEN, BLOOD 26 mg/dL (7-18)
[2019-06-04 06:52] LABS: HEMOGLOBIN 10.2 g/dL (10.9-14.3); MONOCYTES # (AUTO) 0.8 K/uL (2.0-10.0); NEUTROPHILS % (AUTO) 92.1 % (38.5-71.5)
[2019-06-04 07:02] LABS: HEMATOCRIT 33.6 % (31.2-41.9); LYMPHOCYTES # (AUTO) 1.1 K/uL (20.0-40.0); LYMPHOCYTES % (AUTO) 4.6 % (20.5-51.5); MEAN CORPUSCULAR HEMOGLOBIN 19.9 uug (24.7-32.8); MEAN CORPUSCULAR HGB CONC 30 g/dL (32.3-35.6); MEAN CORPUSCULAR VOLUME 65.3 fL (75.5-95.3); MONOCYTES % (AUTO) 3.3 % (0.0-11.0); NEUTROPHILS # (AUTO) 21.7 K/uL (1.8-8.9); PLATELET COUNT (AUTO) 273 K/uL (179-408); RED BLOOD CELL COUNT(AUTO) 5.15 MIL/uL (3.63-4.92)
[2019-06-04 07:04] LABS: WHITE BLOOD COUNT (AUTO) 23.6 K/uL (3.8-11.8)
[2019-06-04 07:43] LABS: BAND % (MANUAL) 2 % (0-10); LYMPHOCYTES % (MANUAL) 1 % (20-40); MONOCYTES % (MANUAL) 2 % (2-10); MYELOCYTES % 1 % (0-0); NEUTROPHILS % (MANUAL) 94 % (42-75)
--- NOTE | 2019-06-04 08:00 | NUR ---
AWAKE ALERT AND VERBALLY RESPONSIVE NO SS OF DISTRESS WITH 2 L O2 VIA NC, DENIES PAIN. SR ON MONITOR
[2019-06-04] MEDS: methylPREDNISolone SOD SUCC 40 MG/ML VIAL IV SCH ×3 (08:27→21:09)
[2019-06-04] MEDS: hydrALAZINE HCL 50 MG TABLET PO SCH ×2 (08:28→21:09)
[2019-06-04] MEDS: LOSARTAN POTASSIUM 50 MG TABLET PO SCH (08:30)
[2019-06-04] MEDS: FUROSEMIDE 20 MG TABLET PO SCH (08:30)
[2019-06-04] MEDS: AZITHROMYCIN 250 MG TABLET PO SCH (08:37)
[2019-06-04] MEDS: INSULIN REGULAR, HUMAN 300 UNIT/3 ML VIAL SQ PRN ×4 (08:39→21:14)
--- NOTE | 2019-06-04 09:49 | NUR ---
30 MG SOLUMEDROL NOT GIVEN , 40 MG DOSE GIVEN AT [id number]
--- NOTE | 2019-06-04 10:49 | NUR ---
SEEN BY DR HUFFMAN FOR PULMONARY FOLLOW-UP ADJUSTED MEDS. SEE NOTES
[2019-06-04 11:48] VITALS: BP 142/47
[2019-06-04] MEDS: SOD FERRIC GLUC COMPLX/SUCROSE 125 MG in IV NORMAL SALINE 100 ML IV SCH (14:10)
[2019-06-04 15:24] VITALS: BP 122/65
[2019-06-04] MEDS: CEFTRIAXONE 1 G in IV DEXTROSE 5% 50 ML IV SCH (17:11)
--- NOTE | 2019-06-04 18:33 | NUR ---
NO ACUTE CHANGE CONTINUE WITH ANTIBIOTIC AND PULMONARY MANAGEMENT. CONTINUE RA SATURATING 96%. NO SS OF DISTRESS. PLAN DC IN AM
--- NOTE | 2019-06-04 19:30 | NUR ---
Received patient sitting on chair, A&Ox4, Romansh speaking. On RA saturating at 95%. No SOB noted, no complaints of chest pain. Heplock on R hand intact and patent. Safety measures observed. Call light within reach
[2019-06-04 19:40] VITALS: BP 149/74
[2019-06-05] MEDS: ALBUTEROL SULFATE 1.25 MG/3 ML NEBU NEB SCH ×3 (01:41→14:38)
[2019-06-05] MEDS: IPRATROPIUM BROMIDE 0.5 MG/2.5 ML NEBU NEB SCH ×3 (01:41→14:38)
[2019-06-05 04:55] VITALS: BP 136/87
--- NOTE | 2019-06-05 06:32 | NUR ---
Patient slept well throughout the night. No SOB, not in distress. No complaints of pain at this time. Breathing tx done Q6. All needs attended. Will endorse accordingly.
[2019-06-05] MEDS: BLOOD SUGAR DIAGNOSTIC 1 EACH STRIP VI SCH ×3 (06:41→16:23)
[2019-06-05 06:55] LABS: BASOPHILS % (AUTO) 0.1 % (0.0-2.0); HEMATOCRIT 34.3 % (31.2-41.9); HEMOGLOBIN 10.9 g/dL (10.9-14.3); LYMPHOCYTES # (AUTO) 0.8 K/uL (20.0-40.0); LYMPHOCYTES % (AUTO) 3.8 % (20.5-51.5); MEAN CORPUSCULAR HEMOGLOBIN 20.9 uug (24.7-32.8); MEAN CORPUSCULAR HGB CONC 32 g/dL (32.3-35.6); MEAN CORPUSCULAR VOLUME 65.9 fL (75.5-95.3); MONOCYTES # (AUTO) 0.5 K/uL (2.0-10.0); MONOCYTES % (AUTO) 2.3 % (0.0-11.0); NEUTROPHILS # (AUTO) 19.8 K/uL (1.8-8.9); NEUTROPHILS % (AUTO) 93.8 % (38.5-71.5); PLATELET COUNT (AUTO) 290 K/uL (179-408); WHITE BLOOD COUNT (AUTO) 21.1 K/uL (3.8-11.8)
[2019-06-05 07:19] LABS: MAGNESIUM 2.3 mg/dL (1.8-2.4); PHOSPHOROUS 4.4 mg/dL (2.5-4.9); POTASSIUM 3.9 mmol/L (3.5-5.1)
--- NOTE | 2019-06-05 07:41 | NUR ---
AWAKE ALERT AND ORIENTED X3 SITTING UP ON CHAIR, NO SS OF DISTRESS ON RA SATURATING 97%. CONTINUE PULMONARY AND CARDIAC OBSERVATION. CXR REMAINS UNCHANGED.
[2019-06-05] MEDS: methylPREDNISolone SOD SUCC 40 MG/ML VIAL IV SCH (08:11)
[2019-06-05] MEDS: FUROSEMIDE 20 MG TABLET PO SCH (08:12)
[2019-06-05] MEDS: AZITHROMYCIN 250 MG TABLET PO SCH (08:12)
[2019-06-05] MEDS: hydrALAZINE HCL 50 MG TABLET PO SCH (08:12)
[2019-06-05] MEDS: LOSARTAN POTASSIUM 50 MG TABLET PO SCH (08:12)
[2019-06-05] MEDS: INSULIN REGULAR, HUMAN 300 UNIT/3 ML VIAL SQ PRN ×3 (08:17→16:25)
[2019-06-05 11:00] VITALS: BP 139/61
[2019-06-05] MEDS ORDERED: FERR325T23 PO (11:30)
[2019-06-05] MEDS ORDERED: PRED10TA PO (11:30)
[2019-06-05] MEDS ORDERED: AZIT250T13 PO (11:30)
[2019-06-05] MEDS ORDERED: AMOX500T2 PO (11:30)
[2019-06-05] MEDS ORDERED: PRED20TA PO (11:30)
--- NOTE | 2019-06-05 12:30 | NUR ---
SEEN BY HOSPITALIST WITH DC OR WITH HOME HEALTH FOLLOW-UP CASE MANAGE AWARE AND SPOKE WITH DAUGHTER
[2019-06-05] MEDS: SOD FERRIC GLUC COMPLX/SUCROSE 125 MG in IV NORMAL SALINE 100 ML IV SCH (14:39)
--- NOTE | 2019-06-05 15:55 | NUR ---
AWAITING PICKUP BY DAUGHTER
[2019-06-05] MEDS: CEFTRIAXONE 1 G in IV DEXTROSE 5% 50 ML IV SCH (16:26)
--- NOTE | 2019-06-05 17:45 | NUR ---
DAUGHTER IN MEDICATION AND DISCHARGE INSTRUCTION GIVEN SO WITH FOLLOW-UP WITH GI AND PCP. DCD HOME STABLE
== END 2019-06-05 18:10 | disposition home health service (06) | DRG 291 ==
LOC: ER 14:11 → TELE3 17:05 → MEDSURG3 06-04 11:40
PROVIDERS: ADMIT Nurse Practitioner Acute Care; ATTEND Nurse Practitioner Acute Care
DX: I11.0 Hypertensive heart disease with heart failure (principal); J18.9 Pneumonia, unspecified organism; K86.1 Other chronic pancreatitis; D68.59 Other primary thrombophilia; E46 Unspecified protein-calorie malnutrition; I50.33 Acute on chronic diastolic (congestive) heart failure; I48.2 Chronic atrial fibrillation; I25.10 Atherosclerotic heart disease of native coronary artery without angina pectoris; J84.10 Pulmonary fibrosis, unspecified; I70.0 Atherosclerosis of aorta; J44.9 Chronic obstructive pulmonary disease, unspecified; I08.3 Combined rheumatic disorders of mitral, aortic and tricuspid valves; E11.9 Type 2 diabetes mellitus without complications; D72.829 Elevated white blood cell count, unspecified; T38.0X5A Adverse effect of glucocorticoids and synthetic analogues, initial encounter; Y92.230 Patient room in hospital as the place of occurrence of the external cause; Z86.73 Personal history of transient ischemic attack (TIA), and cerebral infarction without residual deficits; Z95.5 Presence of coronary angioplasty implant and graft; Z87.01 Personal history of pneumonia (recurrent); Z79.01 Long term (current) use of anticoagulants; Z90.710 Acquired absence of both cervix and uterus; Z79.84 Long term (current) use of oral hypoglycemic drugs; D50.9 Iron deficiency anemia, unspecified; F41.0 Panic disorder [episodic paroxysmal anxiety]; I25.2 Old myocardial infarction
CPT/HCPCS: 36415; 36600; 70030-TC; 71045; 83550; 83605; 83735; 84100; 84443; 85025; 85730; 87040; 87070; 93005; 93307; 94640; A4663; G0378; J0696; J1815; J1940; J2916; J2920; J3490; J3590; J7030; J7040; J7042; J7060; Q0144